=== PATIENT | female | born 1935 | race Hispanic/Latino ===

== ENCOUNTER 2021-08-18 12:23 | Emergency (ER) | payer OTHER, MEDICARE ==
[~2021-08-18] VITALS: Ht 152.4 cm; Wt 56.7 kg
[~2021-08-18 12:23] MED LIST: ERGO500014 PO; EZET10TA48 PO; LEVO500T2 PO; LISI20TA24 PO; METO100T14 PO; METR500T PO
[2021-08-18 13:04] LABS: BASOPHILS % (AUTO) 0.2 % (0.0-5.0); EOSINOPHILS % (AUTO) 0.6 % (0.0-8.0); HEMATOCRIT 38.9 % (36-48); LYMPHOCYTES % (AUTO) 19.4 % (21.0-51.0); MEAN CORPUSCULAR HEMOGLOBIN 29.8 pg (27.0-33.0); MEAN CORPUSCULAR HGB CONC 33.4 g/dL (32.0-36.0); MEAN CORPUSCULAR VOLUME 89.2 fL (79-99); MONOCYTES % (AUTO) 7.7 % (3.0-13.0); NEUTROPHILS % (AUTO) 71.6 % (40.0-77.0); PLATELET COUNT (AUTO) 222 K/uL (130-400); RED BLOOD CELL COUNT(AUTO) 4.36 MIL/uL (4.00-5.50); RED CELL DISTRIBUTION WIDTH 12.7 % (11.0-15.5); WHITE BLOOD COUNT (AUTO) 10.4 K/uL (4.8-10.8)
[2021-08-18 13:06] LABS: CREATININE 0.8 mg/dL (0.5-1.5); POTASSIUM 3.7 mmol/L (3.5-5.1)
[2021-08-18 13:11] LABS: ALBUMIN 3.7 g/dL (3.5-5.0); BILIRUBIN,TOTAL 0.6 mg/dL (0.2-1.0); TOTAL PROTEIN, SERUM 7.9 g/dL (6.0-8.3)
[2021-08-18 14:48] LABS: APPEARANCE,URINE Clear (CLEAR); BILIRUBIN,URINE Negative (NEGATIVE); COLOR,URINE Yellow (YELLOW); GLUCOSE, URINE (UA) Negative (NEGATIVE); KETONES,URINE Negative (NEGATIVE); LEUKOCYTE ESTERASE ,URINE Large (NEGATIVE); NITRATE,URINE Negative (NEGATIVE); OCCULT BLOOD,URINE Trace (NEGATIVE); PH,URINE 5.5 (5.0-8.0); PROTEIN,URINE Trace mg/dL (NEGATIVE); UROBILINOGEN,URINE 0.2 mg/dL (0.2-1.0)
[2021-08-18 14:59] LABS: RBC,URINE 0-1 /HPF (0-1)
[2021-08-18 15:00] LABS: BACTERIA,URINE Few /HPF (None Seen); MUCUS,URINE Few LPF (None Seen); SQUAMOUS EPITHELIAL CELL,UR 0-2 /HPF (0-2)
[2021-08-18] MEDS ORDERED: CEFTRIAXONE 1G VIAL IM ONE (15:00)
[2021-08-18] MEDS ORDERED: CEFTRIAXONE 1G VIAL ONE (15:05)
[2021-08-18] MEDS ORDERED: LIDOCAINE HCL-MPF 1% 2ML VIAL ONE (15:05)
[2021-08-18 15:20] VITALS: BP 170/84
== END 2021-08-18 15:25 | disposition home or self-care (01) ==
LOC: EDH 12:23
DX: N39.0 Urinary tract infection, site not specified (principal); I10 Essential (primary) hypertension; E78.00 Pure hypercholesterolemia, unspecified; Z90.89 Acquired absence of other organs; Z90.49 Acquired absence of other specified parts of digestive tract; Z88.1 Allergy status to other antibiotic agents; Z88.8 Allergy status to other drugs, medicaments and biological substances; Z79.899 Other long term (current) drug therapy
CPT/HCPCS: 36415; 80053; 81001; 85025; 87088; 96372; 99283; J0696; J3490

== ENCOUNTER → 2024-01-22 | Outpatient (CLI) | payer OTHER, MEDICARE ==
[~2024-01-22] MED LIST changes: +AMLO-258 PO; -ERGO500014 PO; -EZET10TA48 PO; -LEVO500T2 PO; -LISI20TA24 PO; +LOSA100T59 PO; +METO-409 PO; -METO100T14 PO; -METR500T PO
== END | disposition home or self-care (01) ==
LOC: SHCH 07:30
PROVIDERS: ATTEND Internal Medicine Cardiovascular Disease
DX: R94.39 Abnormal result of other cardiovascular function study (principal)
CPT/HCPCS: 93978

== ENCOUNTER 2024-08-12 11:30 | Emergency (ER) | payer OTHER, MEDICARE ==
[~2024-08-12] VITALS: Ht 152.4 cm; Wt 62.6 kg
[2024-08-12 11:54] LABS: BASOPHILS # (AUTO) 0.02 K/uL (0.00-0.20); BASOPHILS % (AUTO) 0.3 % (0.0-5.0); EOSINOPHILS # (AUTO) 0.06 K/uL (0.00-0.70); EOSINOPHILS % (AUTO) 0.9 % (0.0-8.0); HEMATOCRIT 40.4 % (36-48); IMMATURE GRANULOCYTE ABSOLUTE 0.02 K/uL (0-1); LYMPHOCYTES # (AUTO) 1.9 K/uL (1.0-4.8); LYMPHOCYTES % (AUTO) 29.6 % (21.0-51.0); MEAN CORPUSCULAR HEMOGLOBIN 30.5 pg (27.0-33.0); MEAN CORPUSCULAR HGB CONC 33.4 g/dL (32.0-36.0); MEAN CORPUSCULAR VOLUME 91.4 fL (79-99); MONOCYTES # (AUTO) 0.5 K/uL (0.1-1.0); MONOCYTES % (AUTO) 8.1 % (3.0-13.0); NEUTROPHILS # (AUTO) 3.9 K/uL (1.8-7.7); NEUTROPHILS % (AUTO) 60.8 % (40.0-77.0); PLATELET COUNT (AUTO) 228 K/uL (130-400); RED BLOOD CELL COUNT(AUTO) 4.42 MIL/uL (4.00-5.50); RED CELL DISTRIBUTION WIDTH 13.2 % (11.0-15.5); WHITE BLOOD COUNT (AUTO) 6.4 K/uL (4.8-10.8)
[2024-08-12] MEDS: 0.9%NACL 1000ML 1,000 ML IV STA (11:54)
[2024-08-12] MEDS: morPHINE 2 MG SYG IVP STA (11:54)
[2024-08-12] MEDS: ondanSETRON 4MG INJ IVP STA (11:55)
[2024-08-12 12:01] LABS: CREATININE 0.8 mg/dL (0.5-1.0); POTASSIUM 3.6 mmol/L (3.5-5.1)
[2024-08-12] MEDS ORDERED: IOHEXOL-350 75 ML VIAL IV ONE (12:31)
--- NOTE | 2024-08-12 12:49 | ERN ---
ED Note History of Present Illness Stated Complaint: LEFT FLANK PAIN Chief Complaint: Flank Pain Time Seen by MD: 11:38 Time Seen by Midlevel: 11:44 Dictation: 88-year-old female coming in with complaints of left flank pain and left lower quadrant pain. Patient states she has a history of diverticulitis. Patient states her pain started yesterday. Denies having any nausea or vomiting or diarrhea at this time. Denies any urinary symptoms. Allergies: Coded Allergies: ciprofloxacin (Unverified Allergy, Mild, 02/07/14) hydralazine (Unverified Allergy, Mild, RASH HANDS, FLUSHING , 04/02/17) Home Meds Active Scripts Amlodipine Besylate (Amlodipine Besylate) 10 Mg Tablet, 10 MG PO DAILY for 30 Days, #30 TAB 0 Refills Prov:CEDRIC IVERSON WASHATERIA ATTENDANT 09/11/23 Reported Medications Losartan Potassium (Losartan Potassium) 100 Mg Tablet, 100 MG PO DAILY, TAB 04/10/23 Metoprolol Succinate (Metoprolol Succinate) 100 Mg Tab.er.24h, 100 MG PO DAILY, TAB 04/10/23 Past Medical History Past Medical History: Diverticulitis, Hypertension Surgical History: Appendectomy, Cholecystectomy Review of System Dictation Constitutional: Negative for fever,chills, and weight loss Eyes: Negative for injury, pain,redness, and discharge ENT: Negative for injury,pain or swelling Cardiovascular: Negative for chest pain, palpitations, and edema Respiratory: Negative for shortness of breath, cough, and wheezing, Abdomen/GI: Positive for left lower quadrant pain, no nausea, no vomiting, no diarrhea, and constipation Back: Negative for injury and pain : Negative for injury, bleeding and discharge MS/Extremity: Negative for injury and deformity Skin: Negative for rash, and discoloration Neuro: Negative for headache, weakness, numbness, tingling, and seizure Psych: Negative for suicide ideation, homicidal ideation, and hallucinations Review of Systems: was completed Initial Vital Sign VS Vital Signs Date Time Temp Pulse Resp B/P (MAP) Pulse Ox O2 Delivery O2 Flow Rate FiO2 08/12/24 11:50 98.6 77 13 /83 94 Room Air* 0 21 Physical Exam Dictation General: awake, alert, NAD Head/Face: Normocephalic, atraumatic Eyes: PERRL, EOMI, vision at baseline ENT: oral cavity clear, TMs clear, no signs of infection Neck: Trachea midline, supple, no nuchal rigidity Cardiovascular: RRR, normal S1/S2, No MRGs, no JVD Respiratory: CTAB, no respiratory distress, No rales or wheezes Abdomen: Soft, non-tender, non-distended, normal bowel sounds, no guarding or rebound. Skin: Warm, dry, normal turgor, no rash MS/Extremity: Pulses equal, no cyanosis, neurovascular intact, FROM Neuro: COAx4, GCS 15, strength 5/5, CN 2-12 intact, normal cerebellar exam, normal gait, Psych: Normal behavior, mood, and affect normal Results (Laboratory/Radiology) Laboratory/Radiology Laboratory Tests Test 08/12/24 11:45 08/12/24 13:22 White Blood Count 6.4 K/uL (4.8-10.8) Red Blood Count 4.42 MIL/uL (4.00-5.50) Hemoglobin 13.5 g/dL (12.0-16.0) Hematocrit 40.4 % (36-48) Mean Corpuscular Volume 91.4 fL (79-99) Mean Corpuscular Hemoglobin 30.5 pg (27.0-33.0) Mean Corpuscular Hemoglobin Concent 33.4 g/dL (32.0-36.0) Red Cell Distribution Width 13.2 % (11.0-15.5) Platelet Count 228 K/uL (130-400) Mean Platelet Volume 10.0 fL (7.5-10.5) Immature Granulocyte % (Auto) 0.3 % (0-1) Neutrophils (%) (Auto) 60.8 % (40.0-77.0) Lymphocytes (%) (Auto) 29.6 % (21.0-51.0) Monocytes (%) (Auto) 8.1 % (3.0-13.0) Eosinophils (%) (Auto) 0.9 % (0.0-8.0) Basophils (%) (Auto) 0.3 % (0.0-5.0) Neutrophils # (Auto) 3.9 K/uL (1.8-7.7) Lymphocytes # (Auto) 1.9 K/uL (1.0-4.8) Monocytes # (Auto) 0.5 K/uL (0.1-1.0) Eosinophils # (Auto) 0.06 K/uL (0.00-0.70) Basophils # (Auto) 0.02 K/uL (0.00-0.20) Absolute Immature Granulocyte (auto 0.02 K/uL (0-1) Nucleated Red Blood Cells 0.0 % (0.0-0.19) Sodium Level 139 mmol/L (136-145) Potassium Level 3.6 mmol/L (3.5-5.1) Chloride Level 102 mmol/L (101-111) Carbon Dioxide Level 26 mmol/L (21-32) Blood Urea Nitrogen 14 mg/dL (7-18) Creatinine 0.8 mg/dL (0.5-1.0) Glomerular Filtration Rate Calc 70 mL/min (>90) Random Glucose 145 mg/dL (70-105) H Total Calcium 9.3 mg/dL (8.5-10.1) Lipase 63 U/L (16-77) Urine Color COLORLESS (YELLOW) Urine Appearance CLEAR (CLEAR) Urine pH 6.5 (5.0-8.0) Urine Specific [place] 1.015 (1.001-1.031) Urine Protein 10 mg/dL (NEGATIVE) H Urine Glucose (UA) NEGATIVE mg/dL (NEGATIVE) Urine Ketones NEGATIVE mg/dL (NEGATIVE) Urine Occult Blood NEGATIVE (NEGATIVE) Urine Nitrate 2+ (NEGATIVE) H Urine Bilirubin NEGATIVE mg/dL (NEGATIVE) Urine Urobilinogen 0.2 mg/dL (0.2-1.0) Urine Leukocyte Esterase NEGATIVE [place]/uL Urine RBC 0-1 /HPF (0-1) Urine WBC 0-1 /HPF (0-1) Urine Squamous Epithelial Cells RARE /HPF (0-2) Urine Bacteria FEW /HPF (None Seen) Labs Reviewed?: Yes EKG Comment: EKGs done at 11:49 a.m., sinus rhythm at a rate of 87. Anteroseptal infarct, old. No STEMI interpreted by ER CT Scan Comment: [facility] [address] [place] [address] IMAGING REPORT Signed PATIENT: ADRIAN TREVINO MR#: [id number] : 1935 SEX: F AGE: 88 LOCATION: [facility] ORDER [id number] STATUS: REG ER REPORT#: [id number] SERVICE 1145 REASON: lflank pain, llq pain, hx of diverticulitis ORDERING PHYSICIAN: RAINER GAFFNEY NP PROCEDURE: ABD PEL W - CT ABDOMEN/PELVIS W/CONTRAST CT ABDOMEN/PELVIS W/CONTRAST HISTORY: Flank pain COMPARISON: 04/09/2023 TECHNIQUE: Multiple sequential axial images of the abdomen and pelvis were obtained from the dome of the diaphragm through symphysis pubis. Patient was given 75 cc of Omnipaque through intravenous route. Oral contrast was not given. FINDINGS: No pleural effusion is seen bilaterally. There is no evidence of parenchymal disease or pulmonary nodule of the visualized lower lungs. Degenerative changes of the thoracolumbar spine are present. The heart is not enlarged. Superior endplate compression fracture is seen involving T11 with 20% loss of height. The liver measures 16.2 cm. There is anterior splenic cyst measuring 2 cm. This may also be related to chronic infarct. Extensive bilateral renal cysts are seen with the largest on the right measuring 8.2 cm and largest on the left measuring 4.5 cm. These were present on previous study. There is diverticulosis. Mild small bowel dilatation is seen with fluid-filled may be related to enteritis. Adrenal glands and pancreas are unremarkable. There is no evidence of hydronephrosis bilaterally. No evidence of renal stone is seen. Fecal material is seen in the colon. There are normal size retroperitoneal and mesenteric lymph nodes. No ascites is seen. Atherosclerotic changes are present. Uterus is enlarged may be related to fibroid uterus. Pelvic sidewalls are symmetric bilaterally. Bladder is well distended without wall thickening. Tiny amount of air collection is seen in the bladder. IMPRESSION: 1. Extensive bilateral renal cysts are seen with the largest on the right measuring 8.2 cm and largest on the left measuring 4.5 cm. These were present on previous study. There is diverticulosis. Mild small bowel dilatation is seen with fluid-filled may be related to enteritis. Possible anterior splenic cyst. No ascites. CT was performed with one or more following dose reduction techniques: automated exposure control, adjustment of the mA and kv according to patient's size, or use of a iterative reconstruction technique. DICTATED BY: STEVEN FERMIN MD DATE: 08/12/24 1258 ED Course ED Course Orders Procedure Category Date Status Time Cbc With Differential LAB 08/12/24 Complete 11:45 Basic Metabolic Panel LAB 08/12/24 Complete 11:45 Lipase LAB 08/12/24 Complete 11:45 Urinalysis Profile LAB 08/12/24 Complete 11:45 12 Lead Ekg Tracing- EKG 08/12/24 Complete Technical 11:45 Chest 1vw RAD 08/12/24 Taken 11:45 Ct Abdomen/Pelvis CT 08/12/24 Resulted W/Contrast 11:45 0.9%Nacl 1000ml (Ns PHA 08/12/24 Complete 1000ml) 11:45 Ondansetron 4mg Inj PHA 08/12/24 Complete (Zofran 4mg Inj) 11:45 Morphine 2mg Syg PHA 08/12/24 Complete (Morphine 2mg Syg) 11:45 Iohexol (Omnipaque) PHA 08/12/24 Complete 12:31 Labetalol 20mg Syg PHA 08/12/24 Complete (Trandate 20mg Syg) 13:23 Culture Urine BATOOL 08/12/24 In Process 13:49 Current Medications Medications (Trade) Dose Ordered Sig/Risa Route PRN Reason Start Time Stop Time Status Last Admin Dose Admin Iohexol (Omnipaque) 75 ml STK-MED ONCE IV 08/12/24 12:31 08/12/24 12:31 DC Labetalol HCl (TRANdate 20MG SYG) 10 mg ONCE STAT IV 08/12/24 13:23 08/12/24 13:26 DC 08/12/24 13:36 Morphine Sulfate (morPHINE 2MG SYG) 2 mg ONCE STAT IVP 08/12/24 11:45 08/12/24 11:50 DC 08/12/24 11:54 Ondansetron HCl (zoFRAN 4MG INJ) 4 mg ONCE STAT IVP 08/12/24 11:45 08/12/24 11:50 DC 08/12/24 11:55 Sodium Chloride 1,000 ml @ 1,000 mls/hr Q1H STAT IV 08/12/24 11:45 08/12/24 12:44 DC 08/12/24 11:54 Vital Signs Date Time Temp Pulse Resp B/P (MAP) Pulse Ox O2 Delivery O2 Flow Rate FiO2 08/12/24 13:24 94 16 209/89 98 Room Air* 0 21 08/12/24 11:55 95 17 233/98 98 Room Air 08/12/24 11:50 98.6 77 13 / 94 Room Air* 0 21 Medical Decision Making MDM MDM: 88-year-old female coming in with complaints of left flank pain and left lower quadrant pain. Patient states she has a history of diverticulitis. Patient states her pain started yesterday. Denies having any nausea or vomiting or diarrhea at this time. Denies any urinary symptoms. She denies having any chest pain or chest discomfort. Lab work unremarkable. CT scan of the abdomen shows enteritis, and diverticulosis. Discussed findings with daughter. Discussed use follow up with PCP in 1-2 days or to return to the hospital as needed. Both verbalized understanding, answered all questions. Differential diagnosis: Kidney stone, urinary tract infection, diverticulitis, gastroenteritis Rationale: Tests considered and ordered secondary to shared decision making include: Previous outside records reviewed: Old ER visits. Risk of complication and/or morbidity or mortality of patient management: None Medications-Per medication reconciliation Need for hospitalization: Patient does not meet criteria for hospitalization. Need for emergency major/minor surgery: No There are no social concerns with this patient. Prescription drug management Prescriptions will include symptomatic care Patient's prior external medical records from other ER visits were reviewed by me as indicated. Prior testing and results from previous visits were reviewed. Prior tests were taken into account with medical decision making and resource utilization, independent historian/historians were used to obtain complete medical history. I independently interpreted the test that were performed, results were reviewed by me and considered findings on radiology if ordered. Medical management and examination interpretation discussions were had by me with other qualified healthcare professionals as indicated for the patient's care. DX & DISP Disposition: Discharge Departure Impression: Primary Impression: Enteritis Additional Impressions: Diverticulosis, Bilateral renal cysts Condition: Stable Additional Instructions: Spoke with the PCP regarding your NSAIDs and findings of bilateral renal cysts. Take your home medications as prescribed. Return to the hospital if any worsening symptoms. Referrals: SANGITA PEREZ DO (PCP) Time of Disposition: 14:14 I have reviewed the case, and I agree with, Diagnosis and Plan RAINER GAFFNEY NP Aug 12, 2024 12:49
--- NOTE | 2024-08-12 13:03 | HMCIMG ---
CT ABDOMEN/PELVIS W/CONTRAST HISTORY: Flank pain COMPARISON: 04/09/2023 TECHNIQUE: Multiple sequential axial images of the abdomen and pelvis were obtained from the dome of the diaphragm through symphysis pubis. Patient was given 75 cc of Omnipaque through intravenous route. Oral contrast was not given. FINDINGS: No pleural effusion is seen bilaterally. There is no evidence of parenchymal disease or pulmonary nodule of the visualized lower lungs. Degenerative changes of the thoracolumbar spine are present. The heart is not enlarged. Superior endplate compression fracture is seen involving T11 with 20% loss of height. The liver measures 16.2 cm. There is anterior splenic cyst measuring 2 cm. This may also be related to chronic infarct. Extensive bilateral renal cysts are seen with the largest on the right measuring 8.2 cm and largest on the left measuring 4.5 cm. These were present on previous study. There is diverticulosis. Mild small bowel dilatation is seen with fluid-filled may be related to enteritis. Adrenal glands and pancreas are unremarkable. There is no evidence of hydronephrosis bilaterally. No evidence of renal stone is seen. Fecal material is seen in the colon. There are normal size retroperitoneal and mesenteric lymph nodes. No ascites is seen. Atherosclerotic changes are present. Uterus is enlarged may be related to fibroid uterus. Pelvic sidewalls are symmetric bilaterally. Bladder is well distended without wall thickening. Tiny amount of air collection is seen in the bladder. IMPRESSION: 1. Extensive bilateral renal cysts are seen with the largest on the right measuring 8.2 cm and largest on the left measuring 4.5 cm. These were present on previous study. There is diverticulosis. Mild small bowel dilatation is seen with fluid-filled may be related to enteritis. Possible anterior splenic cyst. No ascites. CT was performed with one or more following dose reduction techniques: automated exposure control, adjustment of the mA and kv according to patient's size, or use of a iterative reconstruction technique.
[2024-08-12] MEDS: LAbetaLOL 20MG SYG IV STA (13:36)
[2024-08-12 13:37] LABS: APPEARANCE,URINE CLEAR (CLEAR); BILIRUBIN,URINE NEGATIVE (NEGATIVE); COLOR,URINE COLORLESS (YELLOW); GLUCOSE, URINE (UA) NEGATIVE (NEGATIVE); KETONES,URINE NEGATIVE (NEGATIVE); LEUKOCYTE ESTERASE ,URINE NEGATIVE Leu/uL (NEGATIVE); NITRATE,URINE 2+ (NEGATIVE); OCCULT BLOOD,URINE NEGATIVE (NEGATIVE); PH,URINE 6.5 (5.0-8.0); PROTEIN,URINE 10 mg/dL (NEGATIVE); UROBILINOGEN,URINE 0.2 mg/dL (0.2-1.0)
[2024-08-12 13:40] LABS: ADD UA MICROSCOPIC YES
--- NOTE | 2024-08-12 13:43 | EKG ---
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
[2024-08-12 13:56] LABS: BACTERIA,URINE FEW /HPF (None Seen); RBC,URINE 0-1 /HPF (0-1); SQUAMOUS EPITHELIAL CELL,UR RARE /HPF (0-2); WBC,URINE 0-1 /HPF (0-1)
--- NOTE | 2024-08-12 14:31 | HMCIMG ---
CHEST 1VW HISTORY: Shortness of breath COMPARISON: None FINDINGS: A frontal projection of the chest was obtained. No acute pulmonary infiltrates is seen. The heart is borderline enlarged. Degenerative changes are seen. Prominent interstitial markings are seen. No evidence of aortic calcification is seen. IMPRESSION: 1. No acute pulmonary infiltrate is seen. Prominent interstitial markings.
[2024-08-12 15:00] VITALS: BP 166/77; PULSE 80; RESP 16; TEMP 98.4; O2SAT 100
== END 2024-08-12 15:05 | disposition home or self-care (01) ==
LOC: EDH 11:30
DX: K52.9 Noninfective gastroenteritis and colitis, unspecified (principal); K57.10 Diverticulosis of small intestine without perforation or abscess without bleeding; N28.1 Cyst of kidney, acquired; I10 Essential (primary) hypertension; Z79.899 Other long term (current) drug therapy; Z88.1 Allergy status to other antibiotic agents; Z90.49 Acquired absence of other specified parts of digestive tract
CPT/HCPCS: 99285; 74177; 96374; 96361; 96375; 71045; 80048; 83690; 85025; 87086 ×2; 87186; 81001; 36415; 93005; J2270; J2405; Q9967

== ENCOUNTER 2024-10-01 16:25 | Inpatient (IN) | payer OTHER, MEDICAID ==
[~2024-10-01] VITALS: Ht 152.4 cm; Wt 59.4 kg
[2024-10-01] MEDS: dilTIAZem 25MG INJ IVP ONE ×2 (16:56→16:59)
[2024-10-01] MEDS ORDERED: metoPROLOL tartRATE 1 MG/ML 5ML VIAL IV ONE (17:00)
[2024-10-01] MEDS ORDERED: dilTIAZem 25MG INJ IVP ONE ×3 (17:00)
[2024-10-01 17:09] LABS: BASOPHILS # (AUTO) 0.03 K/uL (0.00-0.20); BASOPHILS % (AUTO) 0.4 % (0.0-5.0); EOSINOPHILS % (AUTO) 1.3 % (0.0-8.0); HEMATOCRIT 44.1 % (36-48); IMMATURE GRANULOCYTE ABSOLUTE 0.03 K/uL (0-1); LYMPHOCYTES # (AUTO) 2.7 K/uL (1.0-4.8); LYMPHOCYTES % (AUTO) 36.1 % (21.0-51.0); MEAN CORPUSCULAR HEMOGLOBIN 30.5 pg (27.0-33.0); MEAN CORPUSCULAR VOLUME 89.8 fL (79-99); MONOCYTES # (AUTO) 0.7 K/uL (0.1-1.0); MONOCYTES % (AUTO) 9.8 % (3.0-13.0); NEUTROPHILS # (AUTO) 3.9 K/uL (1.8-7.7); PLATELET COUNT (AUTO) 220 K/uL (130-400); RED BLOOD CELL COUNT(AUTO) 4.91 MIL/uL (4.00-5.50); RED CELL DISTRIBUTION WIDTH 12.9 % (11.0-15.5); WHITE BLOOD COUNT (AUTO) 7.5 K/uL (4.8-10.8)
[2024-10-01 17:13] LABS: CREATININE 0.8 mg/dL (0.5-1.0); POTASSIUM 3.6 mmol/L (3.5-5.1)
[2024-10-01 17:18] LABS: INR 1.02 (0.85-1.15); PROTHROMBIN TIME 10.8 SEC (9.6-11.6)
[2024-10-01 17:19] LABS: PARTIAL THROMBOPLASTIN TIME 26.1 SEC (26.3-35.5)
[2024-10-01] MEDS ORDERED: WATER IV ONE (17:30)
[2024-10-01] MEDS ORDERED: DEXTROSE 5% IV ONE (17:30)
[2024-10-01] MEDS ORDERED: AMIODARONE IV ONE (17:30)
[2024-10-01] MEDS ORDERED: AMIODARONE 540 MG/D5W 300ML (0.5MG/MIN) IV SCH (17:30)
--- NOTE | 2024-10-01 17:35 | NUR ---
AFTER DISCUSSING HAVING BOTH DILTIAZEM DRIP ALONG W/AMIODARONE DRIP RUNNING AT THE SAME TIME FOR PT RATE/RHYTHM CONTROL, DR QUINONES STATED HE DID WANT THEM BOTH RUNNING TOGETHER AT SAME TIME AND GAVE REASONS TO WHY
[2024-10-01] MEDS: AMIOdarone 150MG/100ML BAG 100 ML IV ONE (17:43)
--- NOTE | 2024-10-01 17:50 | ERN ---
General Chief Complaint: Weakness Stated Complaint: WEAKNESS,SHAKY Time Seen by MD: 16:33 History of Present Illness Initial Comments 88-year-old female brought in by family because she was feeling weak with palpitations and a fast heart rate. Patient states she has had this in the past. She does have a history of atrial fibrillation and she is on oral diltiazem. Please see the code note for details. Summary patient is now rate controlled on a diltiazem drip with amiodarone running for conversion to normal sinus rhythm. Allergies: Coded Allergies: ciprofloxacin (Unverified Allergy, Mild, 02/07/14) hydralazine (Unverified Allergy, Mild, RASH HANDS, FLUSHING , 04/02/17) Home Meds Reported Medications Diltiazem HCl (Diltiazem HCl) 60 Mg Tablet, 1 TAB PO DAILY for 30 Days, #30 TAB 0 Refills 10/02/24 Losartan Potassium (Losartan Potassium) 100 Mg Tablet, 100 MG PO DAILY, TAB 04/10/23 Metoprolol Succinate (Metoprolol Succinate) 100 Mg Tab.er.24h, 100 MG PO DAILY, TAB 04/10/23 Discontinued Scripts Amlodipine Besylate (Amlodipine Besylate) 10 Mg Tablet, 10 MG PO DAILY for 30 Days, #30 TAB 0 Refills Prov:CEDRIC IVERSON NP 09/11/23 Past Medical History Past Medical History: Diverticulitis, Hypertension Past Surgical History: Appendectomy, Cholecystectomy Constitutional: (-) chills, (-) diaphoresis, (-) fever, (-) malaise, (-) weakne ss, (-) other documentation EENTM: (-) eye pain, (-) blurred vision, (-) tearing, (-) double vision, (-) e ar pain, (-) ear discharge, (-) nose pain, (-) nose congestion, (-) throat pain, (-) Throat swelling, (-) mouth pain, (-) tooth pain, (-) mouth swelling, (-) other documentation Respiratory: (-) cough, (-) orthopnea, (-) short of breath, (-) stridor, (-) wheezing, (-) other documentation Cardiovascular: (-) chest pain, (-) edema, (-) palpitations, (-) syncope, (-) dyspnea on exertion, (-) other documentation Gastrointestinal/Abdominal: (-) nausea, (-) vomiting, (-) diarrhea, (-) abdominal pain, (-) abdominal distention, (-) constipation, (-) rectal bleeding, (-) dark stool/melena, (-) other documentation Genitourinary: (-) vaginal discharge, (-) vaginal bleeding, (-) dysuria, (-) frequency, (-) hematuria, (-) pain, (-) other documentation Skin: (-) laceration, (-) contusion, (-) abrasion, (-) abscess, (-) rash, (-) change in color, (-) change in hair, (-) change in nails, (-) diaphoresis, (-) dryness, (-) other documentation Neuro: (-) altered mental status, (-) headache, (-) syncope, (-) paralysis, (-) numbness, (-) seizure, (-) pre-existing deficit, (-) tremors, (-) weakness, (-) dizziness, (-) slurred speech, (-) vertigo, (-) other documentation Physical Exam Orientation: (+) oriented x 3 Eye: bilateral eye normal inspection, bilateral eye PERRL, bilateral eye EOMI Ear, Nose, Throat: (+) hearing grossly normal, (+) normal ENT inspection Neck: (+) normal inspection, (+) supple Respiratory: (+) chest non-tender, (+) lungs clear Heart: (+) regular, (+) no gallop Vascular: (+) no edema Gastrointestinal: (+) soft, (+) non-tender, (+) no organomegaly Results Laboratory and Microbiology Lab and Micro Result Laboratory Tests Test 10/01/24 16:47 10/01/24 18:00 White Blood Count 7.5 K/uL (4.8-10.8) Red Blood Count 4.91 MIL/uL (4.00-5.50) Hemoglobin 15.0 g/dL (12.0-16.0) Hematocrit 44.1 % (36-48) Mean Corpuscular Volume 89.8 fL (79-99) Mean Corpuscular Hemoglobin 30.5 pg (27.0-33.0) Mean Corpuscular Hemoglobin Concent 34.0 g/dL (32.0-36.0) Red Cell Distribution Width 12.9 % (11.0-15.5) Platelet Count 220 K/uL (130-400) Mean Platelet Volume 10.0 fL (7.5-10.5) Immature Granulocyte % (Auto) 0.4 % (0-1) Neutrophils (%) (Auto) 52.0 % (40.0-77.0) Lymphocytes (%) (Auto) 36.1 % (21.0-51.0) Monocytes (%) (Auto) 9.8 % (3.0-13.0) Eosinophils (%) (Auto) 1.3 % (0.0-8.0) Basophils (%) (Auto) 0.4 % (0.0-5.0) Neutrophils # (Auto) 3.9 K/uL (1.8-7.7) Lymphocytes # (Auto) 2.7 K/uL (1.0-4.8) Monocytes # (Auto) 0.7 K/uL (0.1-1.0) Eosinophils # (Auto) 0.10 K/uL (0.00-0.70) Basophils # (Auto) 0.03 K/uL (0.00-0.20) Absolute Immature Granulocyte (auto 0.03 K/uL (0-1) Nucleated Red Blood Cells 0.0 % (0.0-0.19) Prothrombin Time 10.8 SEC (9.6-11.6) Prothromb Time International Ratio 1.02 (0.85-1.15) Activated Partial Thromboplast Time 26.1 SEC (26.3-35.5) L Sodium Level 141 mmol/L (136-145) Potassium Level 3.6 mmol/L (3.5-5.1) Chloride Level 100 mmol/L (101-111) L Carbon Dioxide Level 27 mmol/L (21-32) Blood Urea Nitrogen 16 mg/dL (7-18) Creatinine 0.8 mg/dL (0.5-1.0) Glomerular Filtration Rate Calc 70 mL/min (>90) Random Glucose 155 mg/dL (70-105) H Total Calcium 10.0 mg/dL (8.5-10.1) Phosphorus Level 3.4 mg/dL (2.5-4.9) Magnesium Level 2.10 mg/dL (1.80-2.40) Troponin I High Sensitivity 27 ng/L (4-50) 60 ng/L (4-50) *H MDM Patient with a history of atrial fibrillation comes in with an acute exacerbation tachycardic up to 170. Her rate is now controlled with diltiazem. She has not converted to normal sinus yet. The owners is on us to figure out why she had a quick exacerbation of her baseline atrial fibrillation. So I ordered a cardiac labs CBC chemistry panel UA I will give her a little fluid. And a chest x-ray. ED Course Orders Procedure Category Date Status Time Diltiazem 25mg Inj PHA 10/01/24 Complete (Cardizem 25mg Inj) 17:00 Diltiazem 25mg Inj PHA 10/01/24 Complete (Cardizem 25mg Inj) 17:00 Diltiazem 25mg Inj PHA 10/01/24 Complete (Cardizem 25mg Inj) 17:00 Troponin I High LAB 10/01/24 Complete Sensitivity 16:52 Pt And Ptt LAB 10/01/24 Complete 16:52 Basic Metabolic Panel LAB 10/01/24 Complete 16:52 Cbc With Differential LAB 10/01/24 Complete 16:52 Chest 1vw RAD 10/01/24 Resulted 16:52 12 Lead Ekg Tracing- EKG 10/01/24 Complete Technical 16:52 Diltiazem 25mg Inj PHA 10/01/24 Complete (Cardizem 25mg Inj) 17:00 Cardiac Monitoring CPOE 10/01/24 Transmitted 16:52 Iv Insertion CPOE 10/01/24 Transmitted 16:52 Diltiazem 25mg Inj PHA 10/01/24 Complete (Cardizem 25mg Inj) 16:51 Diltiazem 125 Mg/25 PHA 10/01/24 Complete Ml Inj (Diltiazem 12 17:30 Amiodarone 150mg Vial PHA 10/01/24 Complete (Cordarone 150mg V 17:30 Amiodarone 900mg Vial PHA 10/01/24 Complete (Cordarone 900mg V 17:30 Amiodarone PHA 10/01/24 Complete 150mg/100ml Bag 17:30 Amiodarone PHA 10/01/24 Complete 360mg/200ml Bag 17:30 Amiodarone 900mg Vial PHA 5/30/25 In Process (Cordarone 900mg V 17:30 12 Lead Ekg Tracing- EKG 10/01/24 Complete Technical 17:50 Troponin I High LAB 10/01/24 Complete Sensitivity 17:50 Magnesium LAB 10/01/24 Complete 17:50 Phosphorus LAB 10/01/24 Complete 17:50 Cardiology Consult CONPHYSVC 10/01/24 Transmitted 18:08 *Nursing CPOE 10/01/24 Transmitted Communication: 18:31 Current Medications Medications (Trade) Dose Ordered Sig/Risa Route PRN Reason Start Time Stop Time Status Last Admin Dose Admin Amiodarone HCl 150 mg/Dextrose 53 ml @ 0 mls/hr ONCE ONCE IV 10/01/24 17:30 10/01/24 17:08 DC Amiodarone HCl 540 mg/Dextrose 300 ml @ 16.667 mls/ hr PROTOCOL IV 10/01/24 17:30 10/31/24 17:29 Amiodarone HCl 900 mg/Dextrose 518 ml @ 0 mls/hr PROTOCOL IV 10/01/24 17:30 10/01/24 17:08 DC Amiodarone HCL/ Dextrose 100 ml @ 0 mls/hr ONCE ONCE IV 10/01/24 17:30 10/01/24 17:31 DC 10/01/24 17:43 Amiodarone HCL/ Dextrose 200 ml @ 0 mls/hr ONCE ONCE IV 10/01/24 17:30 10/01/24 17:31 DC 10/01/24 17:57 Diltiazem HCl (CARDIzem 25MG INJ) 10 mg ONCE ONCE IVP 10/01/24 17:00 10/01/24 16:56 DC Diltiazem HCl (CARDIzem 25MG INJ) 20 mg ONCE ONCE IVP 10/01/24 17:00 10/01/24 16:53 DC Diltiazem HCl (CARDIzem 25MG INJ) 20 mg ONCE ONCE IVP 10/01/24 17:00 10/01/24 16:56 DC Diltiazem HCl (CARDIzem 25MG INJ) 20 mg ONCE ONCE IVP 10/01/24 17:00 10/01/24 17:01 DC 10/01/24 16:56 Diltiazem HCl (CARDIzem 25MG INJ) 25 mg STK-MED ONCE IVP 10/01/24 16:51 10/01/24 16:56 DC 10/01/24 16:59 Diltiazem HCl 125 mg/Sodium Chloride 125 ml @ 0 mls/hr PROTOCOL IV 10/01/24 17:30 10/01/24 18:33 DC 10/01/24 18:18 Metoprolol Tartrate (loprESSOR) 5 mg ONCE ONCE IV 10/01/24 17:00 10/01/24 17:03 DC Vital Signs Date Time Temp Pulse Resp B/P (MAP) Pulse Ox O2 Delivery O2 Flow Rate FiO2 10/01/24 18:41 99.0 88 19 162/63 96 Room Air* 0 10/01/24 18:35 99.0 95 16 172/82 96 Room Air* 0 10/01/24 18:19 98.4 95 16 167/79 96 Room Air* 0 10/01/24 18:18 103 167/79 10/01/24 18:02 98.4 107 20 154/72 94 Room Air* 0 10/01/24 17:45 98.4 102 20 167/70 95 Room Air* 0 10/01/24 17:33 98.4 95 13 172/66 96 Room Air* 0 10/01/24 17:27 98.4 90 15 168/63 98 Room Air* 0 10/01/24 17:13 99.5 107 17 164/77 95 Room Air* 0 10/01/24 16:59 99.5 109 18 156/87 96 Room Air* 0 10/01/24 16:59 150/80 10/01/24 16:56 150/80 10/01/24 16:46 99.5 195 20 188/108 95 Nasal Cannula* 2 10/01/24 16:28 99.5 140 18 213/138 96 Room Air DX & DISP Disposition: Inpatient Departure Condition: Stable Referrals: SANGITA PEREZ DO (PCP) FAUSTO QUINONES MD October 01, 2024 17:50
[2024-10-01] MEDS: AMIODARONE 360MG/200ML BAG 200 ML IV ONE (17:57)
[2024-10-01 18:02] LABS: MAGNESIUM 2.1 mg/dL (1.80-2.40)
[2024-10-01 18:11] LABS: PHOSPHORUS 3.4 mg/dL (2.5-4.9)
[2024-10-01] MEDS: dilTIAZem 125 MG/25 ML INJ 125 MG in 0.9%NACL 100ML 100 ML IV SCH (18:18)
--- NOTE | 2024-10-01 18:26 | HMCIMG ---
CHEST 1VW HISTORY: A. Fib COMPARISON: None FINDINGS: A frontal projection of the chest was obtained. No acute pulmonary infiltrates is seen. The heart is borderline enlarged. Degenerative changes are seen. Prominent vascular markings are seen. No evidence of aortic calcification is seen. IMPRESSION: 1. No acute pulmonary infiltrate is seen.
[2024-10-01] MEDS: metoPROLOL tartRATE 50 MG TAB PO ONE (18:59)
[2024-10-01] MEDS ORDERED: MAG/ALUM/SIMETH 30 ML UDCUP PO PRN (19:00)
[2024-10-01] MEDS ORDERED: morPHINE 2 MG SYG IV PRN (19:00)
[2024-10-01] MEDS ORDERED: guaiFENesin-DM 200/20MG 10ML PO PRN (19:00)
[2024-10-01] MEDS ORDERED: ondanSETRON 4MG INJ IV PRN (19:00)
[2024-10-01] MEDS ORDERED: NITROGLYCERIN 0.4 MG SL TAB SL PRN (19:00)
[2024-10-01] MEDS ORDERED: acetaMINOPHEN 325 MG TAB PO PRN ×2 (19:00)
--- NOTE | 2024-10-01 19:05 | HP ---
[facility] HISTORY & PHYSICAL Date Patient Seen: October 01, 2024 Time of Visit: 18:53 Supervising Physician: DR. NATHAN MÁRQUEZ Primary Care Physician: DR. CHRIS QUESADA Outpatient Specialists: [ ] Inpatient Consults: [ ] PROBLEM LIST: 1. AFIB WITH RVR 2. ESSENTIAL HYPERTENSION 3. TYPE 2 DC 4. LEFT ARM NUMBNESS RULE OUT ISCHEMIC STROKE CHIEF COMPLAINT: Generalized body weakness, palpitation, left arm numbness HPI: Patient is a 88-year-old female with past medical history significant for atrial fibrillation on Cardizem p.o., hypertension, and a surgical history of cholecystectomy, appendectomy, left eye surgery, presented to emergency department complaining of generalized body weakness, palpitation, and left arm numbness that started today. Patient reports that since this afternoon, she has been experiencing a progressive worsening of palpitation associated with generalized body weakness and left arm numbness. Patient decided to come to emergency department for further evaluation and treatment. EKG performed in the emergency department shows AFib with RVR. Patient denies fever, chills, nausea, vomiting, diarrhea, chest pain, cough, dizziness, or any other symptoms. The workup in the emergency department shows a troponin level of 60. In the emergency department, patient was started on amiodarone and Cardizem drip. 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 During my assessment in the emergency department, Cardizem was stopped. Patient will be admitted to ICU for further evaluation and treatment. PAST MEDICAL HX: see above PAST SURGICAL HX: noncontributory SOCIAL HISTORY: No tobacco, ETOH, or illicit drug use Coded Allergies: ciprofloxacin (Unverified Allergy, Mild, 02/07/14) hydralazine (Unverified Allergy, Mild, RASH HANDS, FLUSHING , 04/02/17) REVIEW OF SYSTEMS: 12 point ROS reviewed with patient. Pertinent positives mentioned above. Otherwise negative. PHYSICAL EXAM: GENERAL: alert, weak, awake oriented x 3 HEENT: EOMI, Sclera non icteric, moist mucosa NECK: Supple, no JVD, trachea midline LUNGS: Clear breath sounds bilaterally. No wheezes HEART: AFib with RVR ABD: Abdomen soft, nontender. Bowel sounds present EXT: No clubbing cyanosis or edema NEURO: Alert and oriented to person, follows commands Vital Signs (last 8hr) Date Time Temp Pulse Resp B/P (MAP) Pulse Ox O2 Delivery O2 Flow Rate FiO2 10/01/24 18:41 99.0 88 19 162/63 96 Room Air* 0 10/01/24 18:35 99.0 95 16 172/82 96 Room Air* 0 10/01/24 18:19 98.4 95 16 167/79 96 Room Air* 0 10/01/24 18:18 103 167/79 10/01/24 18:02 98.4 107 20 154/72 94 Room Air* 0 10/01/24 17:45 98.4 102 20 167/70 95 Room Air* 0 10/01/24 17:33 98.4 95 13 172/66 96 Room Air* 0 10/01/24 17:27 98.4 90 15 168/63 98 Room Air* 0 10/01/24 17:13 99.5 107 17 164/77 95 Room Air* 0 10/01/24 16:59 99.5 109 18 156/87 96 Room Air* 0 10/01/24 16:59 150/80 10/01/24 16:56 150/80 10/01/24 16:46 99.5 195 20 188/108 95 Nasal Cannula* 2 10/01/24 16:28 99.5 140 18 213/138 96 Room Air LABS: Hematology Labs: Test 10/01/24 16:47 Range/Units White Blood Count 7.5 4.8-10.8 K/uL Red Blood Count 4.91 4.00-5.50 MIL/uL Hemoglobin 15.0 12.0-16.0 g/dL Hematocrit 44.1 36-48 % Mean Corpuscular Volume 89.8 79-99 fL Mean Corpuscular Hemoglobin 30.5 27.0-33.0 pg Mean Corpuscular Hemoglobin Concent 34.0 32.0-36.0 g/dL Red Cell Distribution Width 12.9 11.0-15.5 % Platelet Count 220 130-400 K/uL Mean Platelet Volume 10.0 7.5-10.5 fL Immature Granulocyte % (Auto) 0.4 0-1 % Neutrophils (%) (Auto) 52.0 40.0-77.0 % Lymphocytes (%) (Auto) 36.1 21.0-51.0 % Monocytes (%) (Auto) 9.8 3.0-13.0 % Eosinophils (%) (Auto) 1.3 0.0-8.0 % Basophils (%) (Auto) 0.4 0.0-5.0 % Neutrophils # (Auto) 3.9 1.8-7.7 K/uL Lymphocytes # (Auto) 2.7 1.0-4.8 K/uL Monocytes # (Auto) 0.7 0.1-1.0 K/uL Eosinophils # (Auto) 0.10 0.00-0.70 K/uL Basophils # (Auto) 0.03 0.00-0.20 K/uL Absolute Immature Granulocyte (auto 0.03 0-1 K/uL Nucleated Red Blood Cells 0.0 0.0-0.19 % Chemistry Labs: Test 10/01/24 18:00 10/01/24 16:47 Range/Units Troponin I High Sensitivity 60 *H 4-50 ng/L Sodium Level 141 136-145 mmol/L Potassium Level 3.6 3.5-5.1 mmol/L Chloride Level 100 L 101-111 mmol/L Carbon Dioxide Level 27 21-32 mmol/L Blood Urea Nitrogen 16 7-18 mg/dL Creatinine 0.8 0.5-1.0 mg/dL Glomerular Filtration Rate Calc 70 >90 mL/min Random Glucose 155 H 70-105 mg/dL Total Calcium 10.0 8.5-10.1 mg/dL Phosphorus Level 3.4 2.5-4.9 mg/dL Magnesium Level 2.10 1.80-2.40 mg/dL Coagulation Labs: Test 10/01/24 16:47 Range/Units Prothrombin Time 10.8 9.6-11.6 SEC Prothromb Time International Ratio 1.02 0.85-1.15 Activated Partial Thromboplast Time 26.1 L 26.3-35.5 SEC DIAGNOSTICS / RADIOLOGY RESULTS: [ ] PLAN NEURO: Minimize central acting medications as possible. Fall Precautions. Well lighted room through the day and minimize interruptions through the night to prevent acute delirium. PT evaluation and treatment Obtain CTA neck, CTA head, CT brain stat Neuro checks every 4 hours PULMONARY: Supplemental 02 as needed Titrate Fio2 to keep Spo2 > or = 90% DuoNebs and CPT as needed IS hourly while awake for pulmonary hygiene Out of bed to chair as tolerated VAP Bundle Vent/BIPAP Settings: [ ] Driving pressure: [ ] P Plat: [ ] Static C: [ ] Static R: [ ] P/F Ratio: [ ] CARDIOVASCULAR: Follow hemodynamics. Titrate vasopressor to keep MAP >65 or systolic blood pressure >95mmHg Aspirin 81 mg p.o. daily Back End Web Developer consult Atorvastatin 40 mg p.o. at bedtime Nitroglycerin 0.4 mg sublingual p.r.n. for moderate chest pain 2D echo cardiology history Morphine 2 mg IV q.4h p.r.n. for severe chest pain Serial troponin level Lovenox 1 milligram/kilogram subcutaneously every 12 hours Continue amiodarone drip Metoprolol 50 mg p.o. b.i.d. DIPS: [ ] LINES: [ ] GI & NUTRITION: Continue nutritional support Aspirations precautions Prokinetic agents and laxatives as needed KIDNEYS & ELECTROLYTES: Strict monitoring of intake and output Obtain UA Obtain UDS Daily weights Avoid nephrotoxic agents Monitor electrolytes and replace as needed Goal urine output of 30mL/hr or 0.5mL/kg/hr Urine output: [ ] Fluid Balance: [ ] ENDOCRINE: Maintain blood glucose between 100-180 at all times. Insulin sliding scale for blood glucose management Obtain TSH INFECTIOUS DISEASE: Trend temperature. Brown-culture if febrile. Obtain UA Micro: [ ] Antibiotics: [ ] HEMATOLOGY & COAGULATION: Monitor H&H. Keep Hgb > 7 Transfuse 1 unit of PRBC for Hgb < 7 Transfuse 1 pack of platelets of platelets < 20, 000 Watch for any signs and symptoms of bleeding SKIN: Pressure ulcer prevention per facility protocol Rehab: PT/OT Prophylaxis: GI: Famotidine DVT: Lovenox Code Status: Full Resuscitation Disposition: Admitted to ICU Other: Total patient care time exceeds 35 minutes excluding all procedures. Case was discussed and seen with my supervising physician Dr. Davey. The above plan was formulated and agreed upon. MARK FORDE October 01, 2024 19:05
--- NOTE | 2024-10-01 19:31 | NUR ---
ASSUMED PT CARE
[2024-10-01] MEDS ORDERED: dilTIAZem 25MG INJ IVP PRN (20:00)
--- NOTE | 2024-10-01 20:02 | CONS ---
Cardiology Consult Note Cardiology Attending: Cece Young Consulting Physician: Jorge List Date of Service: 10/01/24 Reason for Consult: Palpitations HPI: This is an 88-year-old female with a past medical history of HTN, mild aortic stenosis, normal left ventricle systolic function (LVEF 55% by echocardiogram done in 2023) who presents with generalized weakness and fatigue, that began this afternoon. The symptoms began spontaneously, without provocation, in over the ensuing 4 hours remain constant. The symptoms were not exacerbated or alleviated by anything. Associated symptoms included left arm weakness and palpitations. Pertinent negatives include headache, dizziness, syncope, chest pain, chest pressure, shortness of breath, PND, orthopnea, abdominal pain, weight gain, or lower extremity swelling/edema. The persistence of symptoms prompted the patient to come to the hospital where she was found to be in paroxysmal atrial fibrillation with RVR. There was reported torsade de pointes seen on bedside telemetry monitoring, but this was not confirmed after an extensive review of the bedside court monitor in the emergency department and the patient's ECGs (three). PMH: Listed above PSH: None FH: Significant for CAD, HTN, DMII, and CVA. SH: Denies alcohol, tobacco, or illicit drug use. Home medications: Diltiazem 60 mg daily, losartan 100 mg daily, metoprolol succinate 100 mg daily Allergies: Coded Allergies: ciprofloxacin (Unverified Allergy, Mild, 02/07/14) hydralazine (Unverified Allergy, Mild, RASH HANDS, FLUSHING , 04/02/17) Review of systems: General: Denies fever or chills HEENT: Denies changes in vision, earache or sore throat Neck: Denies pain or stiffness Cardio: As per the HPI Pulm: Denies SOB, coughing or wheezing GI: Denies abdominal pain, nausea, vomiting, diarrhea, or constipation. MSK: Denies muscle or back pain. Heme: Denies anemia, easy bruising, or bleeding. Neuro: As per the HPI. Psych: Denies anxiety, depression, or suicidal ideations. Physical Exam: Vital Signs Date Time Temp Pulse Resp B/P (MAP) Pulse Ox O2 Delivery O2 Flow Rate FiO2 10/01/24 19:03 99.0 89 20 161/70 96 Room Air* 0 21 General: Alert and oriented x 3. NAD HEENT: NC/AT. Oral mucosa is moist. Neck: No masses, JVD, or carotid bruits Lungs: NRD. SCM. B/L CTA. No wheezing, rales or rhonchi. Cardio: Rate @ 95bpm. Irregular rhythm. Abdomen: Soft. NT. ND. Normal active bowel sounds x 4 quadrants. Extremities: No edema, clubbing or cyanosis. Plus two pulses noted throughout. Neuro: CN II-XII were grossly intact. No obvious focal deficits. Labs: Laboratory Tests Test 10/01/24 16:47 10/01/24 18:00 10/01/24 19:02 Range/Units White Blood Count 7.5 4.8-10.8 K/uL Red Blood Count 4.91 4.00-5.50 MIL/uL Hemoglobin 15.0 12.0-16.0 g/dL Hematocrit 44.1 36-48 % Mean Corpuscular Volume 89.8 79-99 fL Mean Corpuscular Hemoglobin 30.5 27.0-33.0 pg Mean Corpuscular Hemoglobin Concent 34.0 32.0-36.0 g/dL Red Cell Distribution Width 12.9 11.0-15.5 % Platelet Count 220 130-400 K/uL Mean Platelet Volume 10.0 7.5-10.5 fL Immature Granulocyte % (Auto) 0.4 0-1 % Neutrophils (%) (Auto) 52.0 40.0-77.0 % Lymphocytes (%) (Auto) 36.1 21.0-51.0 % Monocytes (%) (Auto) 9.8 3.0-13.0 % Eosinophils (%) (Auto) 1.3 0.0-8.0 % Basophils (%) (Auto) 0.4 0.0-5.0 % Neutrophils # (Auto) 3.9 1.8-7.7 K/uL Lymphocytes # (Auto) 2.7 1.0-4.8 K/uL Monocytes # (Auto) 0.7 0.1-1.0 K/uL Eosinophils # (Auto) 0.10 0.00-0.70 K/uL Basophils # (Auto) 0.03 0.00-0.20 K/uL Absolute Immature Granulocyte (auto 0.03 0-1 K/uL Nucleated Red Blood Cells 0.0 0.0-0.19 % Prothrombin Time 10.8 9.6-11.6 SEC Prothromb Time International Ratio 1.02 0.85-1.15 Activated Partial Thromboplast Time 26.1 L 26.3-35.5 SEC Sodium Level 141 136-145 mmol/L Potassium Level 3.6 3.5-5.1 mmol/L Chloride Level 100 L 101-111 mmol/L Carbon Dioxide Level 27 21-32 mmol/L Blood Urea Nitrogen 16 7-18 mg/dL Creatinine 0.8 0.5-1.0 mg/dL Glomerular Filtration Rate Calc 70 >90 mL/min Random Glucose 155 H 70-105 mg/dL Total Calcium 10.0 8.5-10.1 mg/dL Phosphorus Level 3.4 2.5-4.9 mg/dL Magnesium Level 2.10 1.80-2.40 mg/dL Troponin I High Sensitivity 27 60 *H 4-50 ng/L Ammonia < 10 L 11-32 umol/L Telemetry (3 hours): Atrial fibrillation, with heart rates ranging between 95 through 162 beats per minute ECG 10/01/2024 (4:41 p.m.): Atrial fibrillation with RVR. Heart rate 162 beats per minute. Assessment: 1. Paroxysmal atrial fibrillation with RVR 2. Generalized weakness/fatigue 3. TIA 4. HTN 5. Mild aortic stenosis Plan: 1. Paroxysmal atrial fibrillation with RVR -substrate: Dilated atrium -inciting factor: unknown, differentials include electrolyte derangement, infection (UTI) -Telemetry (3 hours): Atrial fibrillation, with heart rates ranging between 95 through 162 beats per minute -ECG 10/01/2024 (4:41 p.m.): Atrial fibrillation with RVR. Heart rate 162 beats per minute. -the patient presents with generalized weakness/fatigue that began this afternoon. Associated symptoms included left arm weakness and palpitations. In the ED she is found to be in paroxysmal atrial fibrillation with RVR. She was treated with various medications including diltiazem and was started on amiodarone drip. Additionally she was administered metoprolol tartrate 100 mg x 1 dose. At the time of my evaluation the patient stated that her symptoms that prompted her visit to the emergency department had resolved. -in order to address the above-mentioned arrhythmia we recommend stopping amiodarone IV drip and starting the patient on a diltiazem IV drip at 5 milligrams/hour. We will titrate the IV drip in order to targeted heart rate less than 100 beats per minute at rest. If we are unable to control the patient's heart rate using diltiazem, then we will add metoprolol tartrate to the patient's medication regimen -in addition we recommend ordered a UA and urine culture to look for an underlying infection. Additionally we recommend instituting an electrolyte replacement protocol in order to keep potassium greater than 4.0 and magnesium greater than 2.0. -CHADS 2 vas score: 4. The patient initially complained of generalized weakness, with left arm weakness. These findings are highly concerning for a TIA, specifically in the setting of new onset paroxysmal atrial fibrillation. With that being said we will recommend ordering a CT scan of the head to rule out hemorrhagic stroke. If the scan is negative, then we recommend starting the patient on heparin IV drip, as per protocol. 2. HTN -stable -we recommend proceeding with a TIA/CVA workup and if negative then we recommend restarting the patient's home regimen of the losartan 100 mg daily. Thank you for this interesting consult and allowing us to participate in the care of your patient. Further recommendations to follow. CECE YOUNG MD October 01, 2024 20:01
--- NOTE | 2024-10-01 20:30 | NUR ---
STOPPED AMIO DRIP THEN STARTED DILTIAZEM DRIP
[2024-10-01] MEDS: dilTIAZem 125 MG/25 ML INJ 125 MG in 0.9%NACL 100ML 100 ML IV PRN (20:31)
[2024-10-01] MEDS ORDERED: IOHEXOL 350 MG/ML 100ML INFUS..BTL IV ONE (20:32)
--- NOTE | 2024-10-01 20:32 | NUR ---
ROUNDED BY DR LEMON, ORDERS MADE. PT IS TO HAVE HER CT TO R/O BLEED, BEFORE STARTING HEP DRIP TO DC CURRENT AMIO DRIP AND SHIFT IT BACK TO DILTIAZEM DRIP
--- NOTE | 2024-10-01 20:34 | NUR ---
SECURED CONSENT, SENT PT TO CT.
--- NOTE | 2024-10-01 20:35 | NUR ---
HOME MEDS NOT AVAIL AT BEDSIDE
--- NOTE | 2024-10-01 20:47 | HMCIMG ---
CT HEAD/BRAIN W/O CONTRAST HISTORY: Left arm numbness COMPARISON: None TECHNIQUE: Multiple sequential axial images of the head were obtained from the base of the skull through vertex. Patient was not given contrast through intravenous route. FINDINGS: The ventricles and extraventricular CSF spaces are dilated consistent with cerebral atrophy. Nonspecific white matter changes seen. There is no midline shift, mass effect or herniation. No acute intracranial bleed is seen. Visualized portion of the paranasal sinuses are grossly within normal limits. There is atherosclerosis. IMPRESSION: 1. No acute intracranial bleed is seen. 2. Atrophy with white matter changes. CT was performed with one or more following dose reduction techniques: automated exposure control, adjustment of the mA and kv according to patient's size, or use of a iterative reconstruction technique.
[2024-10-01 20:53] LABS: APPEARANCE,URINE CLEAR (CLEAR); BILIRUBIN,URINE NEGATIVE (NEGATIVE); COLOR,URINE COLORLESS (YELLOW); GLUCOSE, URINE (UA) 50 mg/dL (NEGATIVE); KETONES,URINE NEGATIVE (NEGATIVE); LEUKOCYTE ESTERASE ,URINE NEGATIVE Leu/uL (NEGATIVE); NITRATE,URINE 1+ (NEGATIVE); PROTEIN,URINE 200 mg/dL (NEGATIVE); UROBILINOGEN,URINE 0.2 mg/dL (0.2-1.0)
[2024-10-01 20:56] LABS: BACTERIA,URINE RARE /HPF (None Seen); RBC,URINE 0-1 /HPF (0-1); SQUAMOUS EPITHELIAL CELL,UR RARE /HPF (0-2)
[2024-10-01] MEDS ORDERED: ENOXAPARIN SODIUM 60 MG/0.6 ML SQ SCH (21:00)
[2024-10-01 21:04] LABS: AMPHET/METH SCREEN,URINE NEGATIVE (NEGATIVE); BARBITURATE SCREEN, URINE NEGATIVE (NEGATIVE); BENZODIAZEPINES SCREEN,URINE NEGATIVE (NEGATIVE); CANNABINOID SCREEN,URINE NEGATIVE (NEGATIVE); COCAINE SCREEN,URINE NEGATIVE (NEGATIVE); OPIATE SCREEN,URINE NEGATIVE (NEGATIVE); PHENCYCLIDINE SCREEN,URINE NEGATIVE (NEGATIVE)
[2024-10-01] MEDS: metoPROLOL tartRATE 50 MG TAB PO SCH (21:14)
[2024-10-01] MEDS: FAMOTIDINE 20MG TAB PO SCH (21:14)
[2024-10-01] MEDS: atorVAStatin 40 MG TABLET PO SCH (21:14)
--- NOTE | 2024-10-01 21:45 | HMCIMG ---
CT ANGIO HEAD AND NECK REASON: left arm numbness TECHNIQUE: Images were obtained from thoracic inlet through the vertex of the skull before and after bolus IV infusion of 100 ml of Isovue 350. 2D and 3D multiplanar reconstruction images were obtained in the head and neck. CT was performed with one or more of the following dose reduction techniques: automated exposure control, adjustment of the mA and/or kV according to patient size, or use of iterative reconstruction technique FINDINGS: Post contrast images in the neck show normal-appearing common and internal carotid arteries. Bifurcations demonstrate mild atherosclerotic plaque. Images in the brain demonstrate normal-appearing internal carotid arteries. Anterior, middle and posterior cerebral arteries appear normal. Posterior fossa vessels are unremarkable as well. There is no evidence of aneurysm or AVM. There is no evidence of focal vessel occlusion. 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
[2024-10-01] MEDS: HEParin 5,000 UNIT VIAL IV PRN (21:59)
[2024-10-01] MEDS: HEParin 25,000 UNITS/250ML D5W 250 ML IV SCH (22:07)
[2024-10-01] MEDS: cefTRIAXone 2GM VIAL IVPB SCH (22:46)
[2024-10-02] VITALS (16 sets, daily range): BP systolic 131–222; BP diastolic 65–122; PULSE 66–148; RESP 18–23; TEMP 97.6–98.4; O2SAT 94–95
--- NOTE | 2024-10-02 00:04 | NUR ---
AFIB SUSTAINED 135 TO 150 WAS CALLED BY TELEMETRY MONITORING THAT PATIENT OFF CARDIZEM DRIP SINCE 10/02/24 @ 0200, and with heart rate 88 to 95 as of now, IS NOTED WITH SUSTAINED AFIB 135 TO 150, WENT TO CHECK ON THE PATIENT, BLOOD PRESSURE HIGH 188/80. AND PATIENT VERY ANXIOUS AND AGGRESSIVE, CALLED DR LEMON AND INFORMED OF THE SITUATION, ADVISE TO RESTART CARDIZEM DRIP, AND GET SOMETHING FOR ANXIETY FROM PRIMARY, CALLED DRISS PEREZ [facility] FOR BENCHMARK TO INFORM, ORDERS WERE RECEIVED FOR METOPROLOL 5 MG ONCE AND 0.5 MG OF ATIVAN PO ONCE, WE'LL CONT TO MONITOR Addendum: 10/03/24 at 0789 by SANDIE PEÑA RN RN Actual Time of this note is 10/02/24 @ 1528
--- NOTE | 2024-10-02 00:11 | NUR ---
AW BENCHMARK TO CALL ME BACK FOR POSSIBLE DOWNGRADE
--- NOTE | 2024-10-02 00:22 | NUR ---
CAN DOWNGRADE PT TO MED TELE PER BENCHMARK NABI- INFORMED HOUSE SUP
--- NOTE | 2024-10-02 00:50 | NUR ---
CALLED FOR REPORT, FLOOR NURSE NOT AVAIL
[2024-10-02] MEDS ORDERED: DILT60TA3 PO (02:08)
[2024-10-02] MEDS ORDERED: hydrALAZine 20MG/ML VIAL IV PRN (04:00)
[2024-10-02] MEDS: hydrALAZine 20MG/ML VIAL IV PRN (04:04)
[2024-10-02] MEDS: ASPIRIN 81 MG EC TAB PO SCH (08:48)
[2024-10-02] MEDS ORDERED: PoTASSium chl 10% ELIXIR 20MEQ 20 MEQ/15 ML UDCUP PO PRN (11:30)
[2024-10-02] MEDS ORDERED: PoTASSium chloRIDE 20MEQ/100ML 100 ML IV PRN (11:30)
[2024-10-02] MEDS: PoTASSium chloRIDE 20MEQ ER 20 MEQ ERTAB PO PRN (11:46)
--- NOTE | 2024-10-02 13:03 | EKG ---
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1935 Requested By: FAUSTO QUINONES Order Number: [id number] Reading MD: Meharn Hall Measurements Intervals [place] Rate: 162 P: 0 NC: 0 QRS: 11 QRSD: 80 T: 196 QT: 232 QTc: 399 Interpretive Statements Atrial fibrillation with rapid V-rate Ventricular premature complex Repolarization abnormality, prob rate related Compared to ECG 08/12/2024 11:49:23 Ventricular premature complex(es) now present Early repolarization now present Sinus rhythm no longer present Myocardial infarct finding no longer present Electronically Signed On 10-04-2024 22:13:52 CDT by Mehran Hall Please click the below link to view image of tracing.
--- NOTE | 2024-10-02 13:03 | EKG ---
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
[2024-10-02 16:19] LABS: INR 1.12 (0.85-1.15); PROTHROMBIN TIME 11.7 SEC (9.6-11.6)
[2024-10-02 16:21] LABS: PARTIAL THROMBOPLASTIN TIME 84.8 SEC (26.3-35.5)
--- NOTE | 2024-10-02 16:53 | PN ---
[facility] PROGRESS NOTE Date Patient Seen: October 02, 2024 Time of Visit: 16:51 Supervising Physician: Dr. Davey Primary Care Physician: DR. CHRIS QUESADA Outpatient Specialists: [ ] Inpatient Consults: [ ] PROBLEM LIST: 1. AFIB WITH RVR 2. ESSENTIAL HYPERTENSION 3. TYPE 2 NM 4. LEFT ARM NUMBNESS RULE OUT ISCHEMIC STROKE INTERVAL HISTORY: 10/02/2024: At the time of my evaluation, the patient is lying in bed. Family members are present at the bedside. The staff nurse reports no acute events. On the monitor, the patient remains afebrile, no tachycardia or tachypnea and marginally hypertensive. No new laboratory data for review today. No new imaging for review. Currently, the patient is on a heparin drip and has been transitioned to metoprolol p.o.. No other complaint. REVIEW OF SYSTEMS: 12 point ROS reviewed with patient. Pertinent positives mentioned above. Otherwise negative. PHYSICAL EXAM: GENERAL: alert, weak, awake oriented x 3 HEENT: EOMI, Sclera non icteric, moist mucosa NECK: Supple, no JVD, trachea midline LUNGS: Clear breath sounds bilaterally. No wheezes HEART: AFib with RVR ABD: Abdomen soft, nontender. Bowel sounds present EXT: No clubbing cyanosis or edema NEURO: Alert and oriented to person, follows commands Vital Signs (last 8hr) Date Time Temp Pulse Resp B/P (MAP) Pulse Ox O2 Delivery O2 Flow Rate FiO2 10/02/24 12:00 97.7 85 18 143/94 96 Room Air LABS: Hematology Labs: Test 10/01/24 16:47 Range/Units White Blood Count 7.5 4.8-10.8 K/uL Red Blood Count 4.91 4.00-5.50 MIL/uL Hemoglobin 15.0 12.0-16.0 g/dL Hematocrit 44.1 36-48 % Mean Corpuscular Volume 89.8 79-99 fL Mean Corpuscular Hemoglobin 30.5 27.0-33.0 pg Mean Corpuscular Hemoglobin Concent 34.0 32.0-36.0 g/dL Red Cell Distribution Width 12.9 11.0-15.5 % Platelet Count 220 130-400 K/uL Mean Platelet Volume 10.0 7.5-10.5 fL Immature Granulocyte % (Auto) 0.4 0-1 % Neutrophils (%) (Auto) 52.0 40.0-77.0 % Lymphocytes (%) (Auto) 36.1 21.0-51.0 % Monocytes (%) (Auto) 9.8 3.0-13.0 % Eosinophils (%) (Auto) 1.3 0.0-8.0 % Basophils (%) (Auto) 0.4 0.0-5.0 % Neutrophils # (Auto) 3.9 1.8-7.7 K/uL Lymphocytes # (Auto) 2.7 1.0-4.8 K/uL Monocytes # (Auto) 0.7 0.1-1.0 K/uL Eosinophils # (Auto) 0.10 0.00-0.70 K/uL Basophils # (Auto) 0.03 0.00-0.20 K/uL Absolute Immature Granulocyte (auto 0.03 0-1 K/uL Nucleated Red Blood Cells 0.0 0.0-0.19 % Chemistry Labs: Test 10/01/24 19:02 10/01/24 18:00 10/01/24 16:47 Range/Units Ammonia < 10 L 11-32 umol/L Troponin I High Sensitivity 60 *H 4-50 ng/L Sodium Level 141 136-145 mmol/L Potassium Level 3.6 3.5-5.1 mmol/L Chloride Level 100 L 101-111 mmol/L Carbon Dioxide Level 27 21-32 mmol/L Blood Urea Nitrogen 16 7-18 mg/dL Creatinine 0.8 0.5-1.0 mg/dL Glomerular Filtration Rate Calc 70 >90 mL/min Random Glucose 155 H 70-105 mg/dL Total Calcium 10.0 8.5-10.1 mg/dL Phosphorus Level 3.4 2.5-4.9 mg/dL Magnesium Level 2.10 1.80-2.40 mg/dL Coagulation Labs: Test 10/02/24 16:00 Range/Units Prothrombin Time 11.7 H 9.6-11.6 SEC Prothromb Time International Ratio 1.12 0.85-1.15 Activated Partial Thromboplast Time 84.8 #H 26.3-35.5 SEC DIAGNOSTICS / RADIOLOGY RESULTS: [ ] PLAN 10/02/2024: For now, going to continue current management for the patient. We will continue beta-luis therapy and follow the heart rate trend. I am going to follow the 2D echo that was ordered and is pending. We will repeat surveillance labs in the morning. The patient will remain on empiric antibiotic therapy with Rocephin for suspected urinary tract infection. I discussed the findings and plan for further management with the patient and family members. We will monitor the patient's progress and response to management. We will continue to provide general supportive care, GI and DVT prophylaxis. Further orders per attending MD and hospital course. NEURO: Minimize central acting medications as possible. Maintain fall precautions, adequate lighting during the day PULMONARY: Supplemental 02 as needed. Maintain aspiration precautions at all times CARDIOVASCULAR: Follow hemodynamics. Vital signs per facility protocol GI & NUTRITION: Continue with nutritional support. Continue stool softeners and laxatives as needed. KIDNEYS & ELECTROLYTES: Strict monitoring of intake, output and overall fluid balance. Avoid nephrotoxic medications to the extent possible. Medications to be dosed according to renal function. Monitor electrolytes and replace as needed ENDOCRINE: Maintain blood glucose between 100-180 at all times. Hypoglycemia protocol in place INFECTIOUS DISEASE: Trend temperature, WBC and procalcitonin level Follow cultures, deescalate antibiotics as soon as possible. Panculture if new onset fever ONCOLOGY/HEMATOLOGY/COAGULATION: Monitor for s/s of bleeding Monitor hemoglobin, coagulation studies as needed SKIN: Pressure ulcer prevention per facility protocol Specialty mattress ORTHO/REHAB: Continue PT/OT Prophylaxis: Continue GI and DVT prophylaxis Code Status: Full Resuscitation Disposition: TBD Other: Patient was seen and case discussed with jodie VILLATORO. Plan of care was discussed and agreed upon. NATALIYA LAMBERT NP October 02, 2024 16:52
[2024-10-02] MEDS: metoPROLOL tartRATE 1 MG/ML 5ML VIAL IV ONE ×2 (17:31→23:34)
--- NOTE | 2024-10-02 17:33 | NUR ---
INITIAL/DCP HOME Met w pt and dtr Patria Anne-Marie Geri this afternoon to discuss dcp. Pt mentions that she lives alone. She is fairly independent w ambulation and ADls. Dtr Patria will sometimes stay overnight w pt. Pt is still able to preform her cooking and cleaning. Dtr provides transportation where needed. DME includes a cane and rollator. Preferred pharmacy is [facility]. Pt denies any insecurities with food, usp, and/or utilities. Discharge goal is to return home. Addendum: 10/03/24 at 1736 by LUZ ELENA ALBRECHT CM Amended: Links added.
[2024-10-02] MEDS: metoPROLOL tartRATE 50 MG TAB PO SCH (21:23)
[2024-10-02 22:43] LABS: INR 1.09 (0.85-1.15); PROTHROMBIN TIME 11.5 SEC (9.6-11.6)
[2024-10-02 22:44] LABS: PARTIAL THROMBOPLASTIN TIME 66.3 SEC (26.3-35.5)
[2024-10-02] MEDS: LORazepam 0.5 MG TABLET PO ONE (23:29)
[2024-10-03] VITALS (13 sets, daily range): BP systolic 129–169; BP diastolic 62–98; PULSE 68–115; RESP 18–20; TEMP 97.6–98; O2SAT 95–96
--- NOTE | 2024-10-03 00:07 | HMCSR ---
APPROVED REPORT EXAM: Two-dimensional and M-mode echocardiogram with Doppler and color Doppler. INDICATION ICD: NSTEMI 2D Dimensions RVDd3.2 cmLVEF(%)46.3 (>50%)LVED Vol(simp.)57.0 mL IVSd1.0 (0.7-1.1cm)FS(%)22 %LVES Vol(simp.)30.0 mL LVDd3.1 (3.8-5.6cm)LA (2D)4.2 (1.6-4.0cm)LVEF(%, simp.)48 % PWd1.1 (0.7-1.1cm)Ao Root(2D)2.6 (2.0-3.7cm)LA ESV INDEX (BP)46.22 mL/m2 LVDs2.4 (2.5-4.0cm)LVOT diam1.8 (1.8-2.4cm) IVC diam1.9 cm Deformation Strain Apical 4-9.4 % Apical 2-9.2 % Apical 3-9.1 % Global Strain-9.2 % M-Mode Dimensions EPSS1.1 cm LA (MM)4.2 (1.6-4.0cm) Ao Root(MM)2.1 (2.0-3.7cm) Aortic Valve AoV Vmax1.9 m/Adonis Peak GR14.9 mmHgLVOT Vmax0.6 m/s AoV VTI0.3 mAo Mean GR8.2 mmHgLVOT VTI0.12 m JORGE (VMAX)0.89 cm2Al P1/2T375 msAVA (VTI) 0.9 cm2 Mitral Valve MV E Prny958.2 cm/sDECEL Pusn696 ms MV A Vmax28.8 cm/sP 1/2 T45 ms E/A ratio3.5MVA (PHT)4.8 cm2 TDI E/E' Ceoqli25.0E/E' Zkcxjwd79.2 Medial E' Peak V6.33 cm/sLateral E' Peak V8.30 cm/s Pulmonary Valve PV Vmax0.7 m/s PV Peak GR1.9 mmHg Tricuspid Valve TR Vmax2.9 m/sRAP (EST) 3 eqRuKIBG85.5 mmHg TR Peak GR43.5 mmHg Left Ventricle The left ventricle is normal size. There is mild global hypokinesis of the left ventricle. Moderate c oncentric left ventricular hypertrophy. Left ventricle systolic function is mildly depressed, estimat ed LVEF 45 to 50%. Stage III diastolic dysfunction. Right Ventricle The right ventricle is normal size. The right ventricular systolic function is normal. Atria The left atrium is moderately dilated, 46 mL/m. The right atrium is dilated. Aortic Valve Aortic valve trileaflet. The leaflets are mildly thickened and calcified. Moderate aortic regurgitati on, pressure half-time 350 ms. Mild aortic stenosis, peak velocity 2.2 m/s, mean gradient 11 mmHg. Mitral Valve Mild mitral annular calcification is noted. The leaflets are mildly thickened and calcified. Mild jose ral regurgitation. There is no mitral valve stenosis. Tricuspid Valve The tricuspid valve is normal in structure. Moderate tricuspid regurgitation. RVSP is 43 mmHg. Pulmonic Valve Pulmonic valve is not well visualized. Great Vessels The aortic root is normal in size. The IVC is normal in size and collapses >50% with inspiration. Pericardium There is no pericardial effusion. Conclusion The left atrium is moderately dilated, 46 mL/m. The right atrium is dilated. Moderate concentric left ventricular hypertrophy. There is mild global hypokinesis of the left ventricle. Left ventricle systolic function is mildly depressed, estimated LVEF 45 to 50%. Stage III diastolic dysfunction. Mild aortic stenosis, peak velocity 2.2 m/s, mean gradient 11 mmHg. Moderate aortic regurgitation, pressure half-time 350 ms. Mild mitral regurgitation. Moderate tricuspid regurgitation. PASP is 46 mmHg. There is no pericardial effusion.
[2024-10-03] MEDS: diazePAM 5 MG/ML 2 ML SYG IV ONE (01:07)
[2024-10-03 04:09] LABS: BASOPHILS # (AUTO) 0.03 K/uL (0.00-0.20); BASOPHILS % (AUTO) 0.4 % (0.0-5.0); EOSINOPHILS # (AUTO) 0.07 K/uL (0.00-0.70); EOSINOPHILS % (AUTO) 0.9 % (0.0-8.0); HEMATOCRIT 41.6 % (36-48); IMMATURE GRANULOCYTE ABSOLUTE 0.03 K/uL (0-1); LYMPHOCYTES # (AUTO) 1.5 K/uL (1.0-4.8); LYMPHOCYTES % (AUTO) 19.2 % (21.0-51.0); MEAN CORPUSCULAR HEMOGLOBIN 30.4 pg (27.0-33.0); MEAN CORPUSCULAR HGB CONC 33.7 g/dL (32.0-36.0); MEAN CORPUSCULAR VOLUME 90.2 fL (79-99); MONOCYTES # (AUTO) 0.5 K/uL (0.1-1.0); MONOCYTES % (AUTO) 6.4 % (3.0-13.0); NEUTROPHILS # (AUTO) 5.7 K/uL (1.8-7.7); NEUTROPHILS % (AUTO) 72.7 % (40.0-77.0); PLATELET COUNT (AUTO) 228 K/uL (130-400); RED BLOOD CELL COUNT(AUTO) 4.61 MIL/uL (4.00-5.50); RED CELL DISTRIBUTION WIDTH 13.2 % (11.0-15.5); WHITE BLOOD COUNT (AUTO) 7.8 K/uL (4.8-10.8)
[2024-10-03 04:36] LABS: CREATININE 0.8 mg/dL (0.5-1.0); POTASSIUM 4.2 mmol/L (3.5-5.1)
--- NOTE | 2024-10-03 10:07 | PN ---
[facility] Cardiology Progress Note PROBLEM LIST: [New onset atrial fibrillation with RVR Chads2 Vasc score of at least four Anticoagulated 2D echo with EF 45-50%, mild 2023 echo EF 55%, mild Hypertension Octogenarian] INTERVAL HISTORY: [Patient remains in atrial fibrillation. Yesterday afternoon and last night she had episode of RVR requiring IV metoprolol, and was then placed back on the Cardizem drip. She also required a dose of Ativan, followed by some diazepam. Yesterday her metoprolol was increased to 100 mg b.i.d. Home dose of metoprolol succinate is 100 mg daily. She is also on diltiazem 60 mg daily and losartan 100 mg daily at home. To recap she presented on Friday afternoon with new onset AFib with RVR, symptoms starting earlier that day. She was placed on a Cardizem drip on admission, then metoprolol was started at 50 mg b.i.d, increased yesterday. This morning she states she is not feeling too well. She describes a vertigo like sensation that happens even if she is lying supine in bed. She did feel some palpitations last night but they were no where near as forceful as the ones she felt two days ago on admission. She has been rate controlled on the Cardizem drip. No chest pain, shortness of breath, leg edema. No reports of bleeding. Patient feels like she is seeing people at an angle] PHYSICAL EXAMINATION: Vital Signs (Last 48hrs) Date Time Temp Pulse Resp B/P (MAP) Pulse Ox O2 Delivery O2 Flow Rate FiO2 10/03/24 08:20 97.5 93 18 148/95 96 Room Air 10/03/24 03:48 97.9 80 20 129/62 98 Room Air 10/03/24 01:50 96 20 149/86 96 Nasal Cannula 2.0 10/03/24 01:20 94 18 165/80 96 Nasal Cannula 2.0 10/03/24 00:00 115 20 151/94 95 Room Air 10/02/24 23:50 118 20 155/95 95 Room Air 10/02/24 23:35 135 20 162/88 95 Room Air 10/02/24 23:34 128 180/78 10/02/24 23:30 128 20 180/78 95 Room Air 10/02/24 23:22 145 188/70 5/31/25 23:15 98.1 148 23 222/122 91 Room Air 10/02/24 20:00 95 Room Air* 0 10/02/24 20:00 97.5 114 20 151/107 95 Room Air 10/02/24 17:31 126 159/89 10/02/24 16:00 97.9 126 18 159/89 95 Room Air 10/02/24 12:00 97.7 85 18 143/94 96 Room Air 10/02/24 08:00 97.7 82 18 149/70 95 Room Air 10/02/24 08:00 95 Room Air* 0 10/02/24 05:57 98.4 82 18 96 Room Air 10/02/24 05:20 131/65 10/02/24 04:50 78 10/02/24 04:26 98.4 82 18 181/78 96 Room Air 10/02/24 02:46 160/81 10/02/24 02:37 67 10/02/24 02:13 98.2 75 18 178/110 94 Room Air 10/02/24 01:45 66 10/02/24 01:45 94 Room Air* 0 10/02/24 00:56 98.8 68 18 168/71 98 Room Air* 0 10/01/24 23:06 98.4 71 18 158/81 98 Room Air* 0 10/01/24 20:31 92 168/65 10/01/24 20:00 98.4 92 18 165/65 99 Room Air* 0 10/01/24 19:03 99.0 89 20 161/70 96 Room Air* 0 10/01/24 18:56 99.0 87 18 172/84 96 Room Air* 0 10/01/24 18:41 99.0 88 19 162/63 96 Room Air* 0 10/01/24 18:35 99.0 95 16 172/82 96 Room Air* 0 10/01/24 18:19 98.4 95 16 167/79 96 Room Air* 0 10/01/24 18:18 103 167/79 10/01/24 18:02 98.4 107 20 154/72 94 Room Air* 0 10/01/24 17:45 98.4 102 20 167/70 95 Room Air* 0 10/01/24 17:33 98.4 95 13 172/66 96 Room Air* 0 21 10/01/24 17:27 98.4 90 15 168/63 98 Room Air* 0 21 10/01/24 17:13 99.5 107 17 164/77 95 Room Air* 0 21 10/01/24 16:59 99.5 109 18 156/87 96 Room Air* 0 21 10/01/24 16:59 150/80 10/01/24 16:56 150/80 10/01/24 16:46 99.5 195 20 188/108 95 Nasal Cannula* 2 28 10/01/24 16:28 99.5 140 18 213/138 96 Room Air General: Resting comfortably, no acute distress. HEENT: Atraumatic. Hearing is intact. No facial asymmetry, nasal discharge, icterus or lid lag. Cardiovascular: Irregularly irregular. 2/6 murmur. No edema. Respiratory: Lungs clear to the bases. No retractions, wheezes or rhonchi. Gastrointestinal: Benign, soft, nontender, nondistended. Extremities: No amputations. Range of motion is grossly normal. Neurology/Psychiatry: No tremors. Speech is clear. Alert and oriented x 3. Cooperative and pleasant. LABORATORY DATA: [ Laboratory Tests Test 10/02/24 10:06 10/02/24 16:00 10/02/24 22:09 10/03/24 03:34 Activated Partial Thromboplast Time 119.8 SEC (26.3-35.5) *H 84.8 SEC (26.3-35.5) #H 66.3 SEC (26.3-35.5) H 64.6 SEC (26.3-35.5) H Prothrombin Time 11.7 SEC (9.6-11.6) H 11.5 SEC (9.6-11.6) Prothromb Time International Ratio 1.12 (0.85-1.15) 1.09 (0.85-1.15) White Blood Count 7.8 K/uL (4.8-10.8) Red Blood Count 4.61 MIL/uL (4.00-5.50) Hemoglobin 14.0 g/dL (12.0-16.0) Hematocrit 41.6 % (36-48) Mean Corpuscular Volume 90.2 fL (79-99) Mean Corpuscular Hemoglobin 30.4 pg (27.0-33.0) Mean Corpuscular Hemoglobin Concent 33.7 g/dL (32.0-36.0) Red Cell Distribution Width 13.2 % (11.0-15.5) Platelet Count 228 K/uL (130-400) Mean Platelet Volume 10.7 fL (7.5-10.5) H Immature Granulocyte % (Auto) 0.4 % (0-1) Neutrophils (%) (Auto) 72.7 % (40.0-77.0) Lymphocytes (%) (Auto) 19.2 % (21.0-51.0) L Monocytes (%) (Auto) 6.4 % (3.0-13.0) Eosinophils (%) (Auto) 0.9 % (0.0-8.0) Basophils (%) (Auto) 0.4 % (0.0-5.0) Neutrophils # (Auto) 5.7 K/uL (1.8-7.7) Lymphocytes # (Auto) 1.5 K/uL (1.0-4.8) Monocytes # (Auto) 0.5 K/uL (0.1-1.0) Eosinophils # (Auto) 0.07 K/uL (0.00-0.70) Basophils # (Auto) 0.03 K/uL (0.00-0.20) Absolute Immature Granulocyte (auto 0.03 K/uL (0-1) Nucleated Red Blood Cells 0.0 % (0.0-0.19) Sodium Level 139 mmol/L (136-145) Potassium Level 4.2 mmol/L (3.5-5.1) Chloride Level 103 mmol/L (101-111) Carbon Dioxide Level 27 mmol/L (21-32) Blood Urea Nitrogen 13 mg/dL (7-18) Creatinine 0.8 mg/dL (0.5-1.0) Glomerular Filtration Rate Calc 70 mL/min (>90) Random Glucose 153 mg/dL (70-105) H Total Calcium 9.2 mg/dL (8.5-10.1) ] RADIOLOGY: [2D echo showed slightly diminished EF 45-50%, mild ] PLAN: [. Patient had episodes of RVR last night requiring two doses of IV metoprolol, followed by resumption of Cardizem drip. Will resume oral diltiazem 30 mg q.6, with a goal of stopping the drip. continue the metoprolol. T ransition to reduced dose Eliquis given her age and weight. Did discuss performing LUDA cardioversion, which she is agrees to after some consideration FELICITY GAUTHIER PAC Oct 03, 2024 10:07
--- NOTE | 2024-10-03 10:50 | PN ---
[facility] PROGRESS NOTE Date Patient Seen: Oct 03, 2024 Time of Visit: 10:48 Supervising Physician: Dr. Finley Primary Care Physician: DR. CHRIS QUESADA Outpatient Specialists: [ ] Inpatient Consults: [ ] PROBLEM LIST: 1. AFIB WITH RVR 2. ESSENTIAL HYPERTENSION 3. TYPE 2 LA 4. 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 VERTIGO INTERVAL HISTORY: 10/02/2024: At the time of my evaluation, the patient is lying in bed. Family members are present at the bedside. The staff nurse reports no acute events. On the monitor, the patient remains afebrile, no tachycardia or tachypnea and m arginally hypertensive. No new laboratory data for review today. No new imaging for review. Currently, the patient is on a heparin drip and has been transitioned to metoprolol p.o.. No other complaint. 10/03/2024: At the time of my evaluation, the patient is lying in bed. She does appear somewhat confused. The patient is also making mentioned regarding the spinning sensation in the room and visual changes. The daughter is present at the bedside. Staff nurse made mentioned that the patient did receive a dose of Valium and Ativan overnight due to confusion and agitation currently, the patient is on room air and vital signs are unremarkable. Overnight, the Cardizem drip was resume due to AFib. Laboratory data was unremarkable. Microbiology data showed mixed bunny contamination, no further workup was carried forth. No new imaging for review today. No other complaint. REVIEW OF SYSTEMS: 12 point ROS reviewed with patient. Pertinent positives mentioned above. Otherwise negative. PHYSICAL EXAM: GENERAL: alert, weak, awake oriented x 3 HEENT: EOMI, Sclera non icteric, moist mucosa NECK: Supple, no JVD, trachea midline LUNGS: Clear breath sounds bilaterally. No wheezes HEART: AFib with RVR ABD: Abdomen soft, nontender. Bowel sounds present EXT: No clubbing cyanosis or edema NEURO: Alert and oriented to person, follows commands Vital Signs (last 8hr) Date Time Temp Pulse Resp B/P (MAP) Pulse Ox O2 Delivery O2 Flow Rate FiO2 10/03/24 10:06 68 18 140/83 96 Room Air 10/03/24 10:03 97 18 146/83 94 Room Air 10/03/24 10:00 95 18 147/98 95 Room Air 10/03/24 08:20 97.5 93 18 148/95 96 Room Air 10/03/24 03:48 97.9 80 20 129/62 98 Room Air LABS: Hematology Labs: Test 10/03/24 03:34 Range/Units White Blood Count 7.8 4.8-10.8 K/uL Red Blood Count 4.61 4.00-5.50 MIL/uL Hemoglobin 14.0 12.0-16.0 g/dL Hematocrit 41.6 36-48 % Mean Corpuscular Volume 90.2 79-99 fL Mean Corpuscular Hemoglobin 30.4 27.0-33.0 pg Mean Corpuscular Hemoglobin Concent 33.7 32.0-36.0 g/dL Red Cell Distribution Width 13.2 11.0-15.5 % Platelet Count 228 130-400 K/uL Mean Platelet Volume 10.7 H 7.5-10.5 fL Immature Granulocyte % (Auto) 0.4 0-1 % Neutrophils (%) (Auto) 72.7 40.0-77.0 % Lymphocytes (%) (Auto) 19.2 L 21.0-51.0 % Monocytes (%) (Auto) 6.4 3.0-13.0 % Eosinophils (%) (Auto) 0.9 0.0-8.0 % Basophils (%) (Auto) 0.4 0.0-5.0 % Neutrophils # (Auto) 5.7 1.8-7.7 K/uL Lymphocytes # (Auto) 1.5 1.0-4.8 K/uL Monocytes # (Auto) 0.5 0.1-1.0 K/uL Eosinophils # (Auto) 0.07 0.00-0.70 K/uL Basophils # (Auto) 0.03 0.00-0.20 K/uL Absolute Immature Granulocyte (auto 0.03 0-1 K/uL Nucleated Red Blood Cells 0.0 0.0-0.19 % Chemistry Labs: Test 10/03/24 03:34 10/01/24 19:02 10/01/24 18:00 10/01/24 16:47 Range/Units Sodium Level 139 136-145 mmol/L Potassium Level 4.2 3.5-5.1 mmol/L Chloride Level 103 101-111 mmol/L Carbon Dioxide Level 27 21-32 mmol/L Blood Urea Nitrogen 13 7-18 mg/dL Creatinine 0.8 0.5-1.0 mg/dL Glomerular Filtration Rate Calc 70 >90 mL/min Random Glucose 153 H 70-105 mg/dL Total Calcium 9.2 8.5-10.1 mg/dL Ammonia < 10 L 11-32 umol/L TSH 3rd Generation 6.380 H 0.450-4.500 uIU/mL Troponin I High Sensitivity 60 *H 4-50 ng/L Phosphorus Level 3.4 2.5-4.9 mg/dL Magnesium Level 2.10 1.80-2.40 mg/dL Coagulation Labs: Test 10/03/24 03:34 10/02/24 22:09 Range/Units Activated Partial Thromboplast Time 64.6 H 26.3-35.5 SEC Prothrombin Time 11.5 9.6-11.6 SEC Prothromb Time International Ratio 1.09 0.85-1.15 DIAGNOSTICS / RADIOLOGY RESULTS: [ ] PLAN 10/02/2024: For now, going to continue current management for the patient. We will continue beta-luis therapy and follow the heart rate trend. I am going to follow the 2D echo that was ordered and is pending. We will repeat surveillance labs in the morning. The patient will remain on empiric antibiotic therapy with Rocephin for suspected urinary tract infection. I discussed the findings and plan for further management with the patient and family members. We will monitor the patient's progress and response to management. We will continue to provide general supportive care, GI and DVT prophylaxis. Further orders per attending MD and hospital course. 10/03/2024: I am going to request a orthostatic blood pressure monitoring as the patient is complaining of the room spinning sensation while lying down, also is feeling as if she is going to fall out of bed. I am going to give meclizine. Will continue on with Cardizem drip per the Cardiology team we have also added Lopressor. Appreciate the input of the treating specialist. We will monitor the patient's progress and response to management. We will continue to provide general supportive care, GI and DVT prophylaxis. Further orders per attending MD and hospital course. NEURO: Minimize central acting medications as possible. Maintain fall precautions, adequate lighting during the day PULMONARY: Supplemental 02 as needed. Maintain aspiration precautions at all times CARDIOVASCULAR: Follow hemodynamics. Vital signs per facility protocol GI & NUTRITION: Continue with nutritional support. Continue stool softeners and laxatives as needed. KIDNEYS & ELECTROLYTES: Strict monitoring of intake, output and overall fluid balance. Avoid nephrotoxic medications to the extent possible. Medications to be dosed according to renal function. Monitor electrolytes and replace as needed ENDOCRINE: Maintain blood glucose between 100-180 at all times. Hypoglycemia protocol in place INFECTIOUS DISEASE: Trend temperature, WBC and procalcitonin level Follow cultures, deescalate antibiotics as soon as possible. Panculture if new onset fever ONCOLOGY/HEMATOLOGY/COAGULATION: Monitor for s/s of bleeding Monitor hemoglobin, coagulation studies as needed SKIN: Pressure ulcer prevention per facility protocol Specialty mattress ORTHO/REHAB: Continue PT/OT Prophylaxis: Continue GI and DVT prophylaxis Code Status: Full Resuscitation Disposition: TBD Other: Patient was seen and case discussed with jodie VILLATORO. Plan of care was discussed and agreed upon. NATALIYA LAMBERT NP Oct 03, 2024 10:50
--- NOTE | 2024-10-03 11:14 | NUR ---
HEPARIN DRIP STOPPED PER LEVAR JOHNSON
[2024-10-03] MEDS: dilTIAZem 60MG TAB PO SCH (11:58)
[2024-10-03] MEDS: mecliZINE HCL 25 MG TABLET PO ONE (11:58)
[2024-10-03] MEDS ORDERED: APIXaban 2.5 MG TABLET PO SCH (17:00)
--- NOTE | 2024-10-03 20:40 | PN ---
PROBLEM LIST: * Paroxysmal atrial fibrillation with RVR, currently rate controlled. * TIA. * CHADS2-VASc score of 4, currently on heparin drip. * Hypertension. 09/2023 echocardiogram, EF greater than 60%, stage II diastolic dysfunction, moderate with peak and mean gradients of 31 and 17, JORGE 1 cm2. INTERVAL HISTORY: The patient remains in atrial fibrillation generally in the 90s but brief episodes into the 100s. Cardizem drip has been discontinued. She is on metoprolol 50 mg b.i.d. The patient feels better than yesterday. Denies any chest pain, shortness of breath, palpitation or edema. No reports of bleeding. No reports of prior stroke. She is being worked up for TIA/CVA by the primary team. PHYSICAL EXAMINATION: GENERAL: Overweight elderly female resting in bed, visiting with family. VITAL SIGNS: Temperature 97.7, pulse 82, respirations 18, blood pressure 149/70. HEENT: Hearing intact. No facial asymmetry, nasal discharge, or icterus. CARDIOVASCULAR: Irregularly irregular, slightly tachycardic. No edema. RESPIRATORY: Grossly clear anteriorly. No wheezing or rhonchi. GASTROINTESTINAL: Benign, soft, nontender. EXTREMITIES: No amputations. Range of motion appears grossly normal. NEUROLOGIC AND PSYCHIATRY: Awake, alert, answering questions appropriately. No tremors or slurring. LABORATORY DATA: High sensory troponin yesterday peaked at 60. No other labs obtained today. Echocardiogram is pending. PLAN: The patient still has marginal rate control. Increase the metoprolol to 100 mg b.i.d. She remains on a heparin drip for now, but can be discharged with Eliquis. Continue aspirin, atorvastatin. Due to suspected CVA, we will maintain permissive hypertension with the caveat that we need rate control. TID: [id number] RECEIPT: [id number]
[2024-10-03] MEDS: APIXaban 2.5 MG TABLET PO SCH (21:07)
[2024-10-04] VITALS (11 sets, daily range): BP systolic 137–183; BP diastolic 65–93; PULSE 78–104; RESP 16–18; TEMP 97.4–98.3; O2SAT 94–95
[2024-10-04 04:13] LABS: BASOPHILS # (AUTO) 0.04 K/uL (0.00-0.20); BASOPHILS % (AUTO) 0.6 % (0.0-5.0); EOSINOPHILS # (AUTO) 0.12 K/uL (0.00-0.70); EOSINOPHILS % (AUTO) 1.8 % (0.0-8.0); HEMATOCRIT 40.9 % (36-48); IMMATURE GRANULOCYTE ABSOLUTE 0.02 K/uL (0-1); LYMPHOCYTES # (AUTO) 2.2 K/uL (1.0-4.8); MEAN CORPUSCULAR HEMOGLOBIN 30.8 pg (27.0-33.0); MEAN CORPUSCULAR HGB CONC 34.2 g/dL (32.0-36.0); MEAN CORPUSCULAR VOLUME 90.1 fL (79-99); MONOCYTES # (AUTO) 0.6 K/uL (0.1-1.0); MONOCYTES % (AUTO) 9.4 % (3.0-13.0); NEUTROPHILS # (AUTO) 3.6 K/uL (1.8-7.7); NEUTROPHILS % (AUTO) 53.9 % (40.0-77.0); PLATELET COUNT (AUTO) 198 K/uL (130-400); RED BLOOD CELL COUNT(AUTO) 4.54 MIL/uL (4.00-5.50); RED CELL DISTRIBUTION WIDTH 13.3 % (11.0-15.5); WHITE BLOOD COUNT (AUTO) 6.6 K/uL (4.8-10.8)
--- NOTE | 2024-10-04 08:24 | PN ---
PROBLEM LIST: * Paroxysmal atrial fibrillation with rapid ventricular response, currently with persistent atrial fibrillation, better rate control. * TIA. * High CHADS-VASC score. * History of hypertension. * Preserved LV systolic function with stage II diastolic dysfunction with mild aortic stenosis and moderate aortic insufficiency and a moderately dilated left atrium by echocardiography on this admission. * Frail, debilitated octogenarian. * Dyslipidemia. This frail elderly lady was hospitalized because of generalized body weakness and numbness and tingling in an arm. She has been evaluated extensively. From the cardiac standpoint, she currently denies any complaints and specifically denies any chest discomfort or shortness of breath. She has no palpitations and her heart rate is better controlled. PHYSICAL EXAMINATION: The patient's exam is remarkable for no evidence of jugular venous distention. The patient has adequate air entry to both lungs. Cardiac exam is remarkable for a 2/6 systolic ejection murmur. The abdomen is soft and extremities are without edema. She has no lateralizing neurologic signs. The patient's vital signs have been stable. She has been afebrile. Her heart rate has been in the 80s. Respiratory rate is 18. She is saturating at 96% to 98% on room air. Her blood pressure remains slightly elevated at 150/90 with permissive hypertension because of her recent neurologic manifestations. The patient is currently maintained on apixaban at an adjusted dose, diltiazem, metoprolol, baby aspirin, Rocephin, famotidine, atorvastatin and p.r.n. medications. LABORATORY DATA: The patient's laboratory studies this morning revealed a white count of 6.6 with an H and H of 14.0 and 40.9 respectively. Platelet count is 198,000. Chemistries revealed a sodium of 141, potassium was 4.0 with a chloride of 104, CO2 is 31, BUN is 20, creatinine is 1.0 with a GFR of 54 and random glucose of 120. The patient's TSH was high at 6.38 on the current regimen. It is important to note that the patient had significant ST segment depression when she had rapid ventricular response, which may well be due to an element of coronary artery disease; however, the rapid rate could also explain the elevated high sensitivity troponin and the ST segment changes. Given the patient's frail status and advanced age, and her personal desires and the family's desires, they wish to continue with conservative care for the time being. I have recommended continuing to adjust the patient's medications. The patient will require additional evaluation by her primary chairman and ceo once it is felt safe to dismiss her. TID: [id number] RECEIPT: [id number]
[2024-10-04] MEDS: mecliZINE HCL 12.5 MG TABLET PO PRN (09:02)
--- NOTE | 2024-10-04 11:21 | PN ---
[facility] PROGRESS NOTE Date Patient Seen: Oct 04, 2024 Time of Visit: 11:20 Supervising Physician: Dr. Finley Primary Care Physician: DR. CHRIS QUESADA Outpatient Specialists: [ ] Inpatient Consults: [ ] PROBLEM LIST: 1. AFIB WITH RVR 2. ESSENTIAL HYPERTENSION 3. TYPE 2 CA 4. 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 VERTIGO INTERVAL HISTORY: 10/02/2024: At the time of my evaluation, the patient is lying in bed. Family members are present at the bedside. The staff nurse reports no acute events. On the monitor, the patient remains afebrile, no tachycardia or tachypnea and m arginally hypertensive. No new laboratory data for review today. No new imaging for review. Currently, the patient is on a heparin drip and has been transitioned to metoprolol p.o.. No other complaint. 10/03/2024: At the time of my evaluation, the patient is lying in bed. She does appear somewhat confused. The patient is also making mentioned regarding the spinning sensation in the room and visual changes. The daughter is present at the bedside. Staff nurse made mentioned that the patient did receive a dose of Valium and Ativan overnight due to confusion and agitation currently, the patient is on room air and vital signs are unremarkable. Overnight, the Cardizem drip was resume due to AFib. Laboratory data was unremarkable. Microbiology data showed mixed bunny contamination, no further workup was carried forth. No new imaging for review today. No other complaint. 10/04/2024: At the time of my evaluation, the patient is lying in bed. She reports feeling much better today after the initiation of meclizine. She remains on room air. On the monitor, there was no tachycardia, tracing will showing AFib, no tachypnea and is hypertensive. Laboratory data today was unremarkable. No new imaging for review today. No new microbiology for review. No other complaint. REVIEW OF SYSTEMS: 12 point ROS reviewed with patient. Pertinent positives mentioned above. Otherwise negative. PHYSICAL EXAM: GENERAL: Alert, weak, awake oriented x 3 HEENT: EOMI, Sclera non icteric, moist mucosa NECK: Supple, no JVD, trachea midline LUNGS: Clear breath sounds bilaterally. No wheezes HEART: AFib with RVR ABD: Abdomen soft, nontender. Bowel sounds present EXT: No clubbing cyanosis or edema NEURO: Alert and oriented to person, follows commands Vital Signs (last 8hr) Date Time Temp Pulse Resp B/P (MAP) Pulse Ox O2 Delivery O2 Flow Rate FiO2 10/04/24 07:00 98.2 83 18 151/71 95 Room Air 10/04/24 04:00 98.2 87 18 158/93 96 Room Air LABS: Hematology Labs: Test 10/04/24 03:39 Range/Units White Blood Count 6.6 4.8-10.8 K/uL Red Blood Count 4.54 4.00-5.50 MIL/uL Hemoglobin 14.0 12.0-16.0 g/dL Hematocrit 40.9 36-48 % Mean Corpuscular Volume 90.1 79-99 fL Mean Corpuscular Hemoglobin 30.8 27.0-33.0 pg Mean Corpuscular Hemoglobin Concent 34.2 32.0-36.0 g/dL Red Cell Distribution Width 13.3 11.0-15.5 % Platelet Count 198 130-400 K/uL Mean Platelet Volume 10.4 7.5-10.5 fL Immature Granulocyte % (Auto) 0.3 0-1 % Neutrophils (%) (Auto) 53.9 40.0-77.0 % Lymphocytes (%) (Auto) 34.0 21.0-51.0 % Monocytes (%) (Auto) 9.4 3.0-13.0 % Eosinophils (%) (Auto) 1.8 0.0-8.0 % Basophils (%) (Auto) 0.6 0.0-5.0 % Neutrophils # (Auto) 3.6 1.8-7.7 K/uL Lymphocytes # (Auto) 2.2 1.0-4.8 K/uL Monocytes # (Auto) 0.6 0.1-1.0 K/uL Eosinophils # (Auto) 0.12 0.00-0.70 K/uL Basophils # (Auto) 0.04 0.00-0.20 K/uL Absolute Immature Granulocyte (auto 0.02 0-1 K/uL Nucleated Red Blood Cells 0.0 0.0-0.19 % Chemistry Labs: Test 10/04/24 03:39 Range/Units Sodium Level 141 136-145 mmol/L Potassium Level 4.0 3.5-5.1 mmol/L Chloride Level 104 101-111 mmol/L Carbon Dioxide Level 31 21-32 mmol/L Blood Urea Nitrogen 20 H 7-18 mg/dL Creatinine 1.0 0.5-1.0 mg/dL Glomerular Filtration Rate Calc 54 >90 mL/min Random Glucose 120 H 70-105 mg/dL Total Calcium 9.3 8.5-10.1 mg/dL Coagulation Labs: Test 10/04/24 03:39 10/02/24 22:09 Range/Units Activated Partial Thromboplast Time 27.3 26.3-35.5 SEC Prothrombin Time 11.5 9.6-11.6 SEC Prothromb Time International Ratio 1.09 0.85-1.15 DIAGNOSTICS / RADIOLOGY RESULTS: [ ] PLAN 10/02/2024: For now, going to continue current management for the patient. We will continue beta-luis therapy and follow the heart rate trend. I am going to follow the 2D echo that was ordered and is pending. We will repeat surveillance labs in the morning. The patient will remain on empiric antibiotic therapy with Rocephin for suspected urinary tract infection. I discussed the findings and plan for further management with the patient and family members. We will monitor the patient's progress and response to management. We will continue to provide general supportive care, GI and DVT prophylaxis. Further orders per attending MD and hospital course. 10/03/2024: I am going to request a orthostatic blood pressure monitoring as the patient is complaining of the room spinning sensation while lying down, also is feeling as if she is going to fall out of bed. I am going to give meclizine. Will continue on with Cardizem drip per the Cardiology team we have also added Lopressor. Appreciate the input of the treating specialist. We will monitor the patient's progress and response to management. We will continue to provide general supportive care, GI and DVT prophylaxis. Further orders per attending MD and hospital course. 10/04/2024: For now, going to continue current management for the patient per the Cardiology team, they have recommended continuing to adjust her medication and we will require further evaluation in the outpatient setting by her primary oil and gas principal's once it is felt safe to discharge her. Considering the microbiology data did not show any urinary tract infection, there was no febrile events are WBC count elevation, I am going to discontinue the IV Rocephin ordered. We will follow the oil and gas principal's recommendation once agreed on discharging the patient, she will be sent home. PT has been ordered to evaluate and treat. We will monitor the patient's progress and response to management. We will continue to provide general supportive care, GI and DVT prophylaxis. Further orders per attending MD and hospital course. NEURO: Minimize central acting medications as possible. Maintain fall precautions, adequate lighting during the day PULMONARY: Supplemental 02 as needed. Maintain aspiration precautions at all times CARDIOVASCULAR: Follow hemodynamics. Vital signs per facility protocol GI & NUTRITION: Continue with nutritional support. Continue stool softeners and laxatives as needed. KIDNEYS & ELECTROLYTES: Strict monitoring of intake, output and overall fluid balance. Avoid nephrotoxic medications to the extent possible. Medications to be dosed according to renal function. Monitor electrolytes and replace as needed ENDOCRINE: Maintain blood glucose between 100-180 at all times. Hypoglycemia protocol in place INFECTIOUS DISEASE: Trend temperature, WBC and procalcitonin level Follow cultures, deescalate antibiotics as soon as possible. Panculture if new onset fever ONCOLOGY/HEMATOLOGY/COAGULATION: Monitor for s/s of bleeding Monitor hemoglobin, coagulation studies as needed SKIN: Pressure ulcer prevention per facility protocol Specialty mattress ORTHO/REHAB: Continue PT/OT Prophylaxis: Continue GI and DVT prophylaxis Code Status: Full Resuscitation Disposition: TBD Other: Patient was seen and case discussed with jodie VILLATORO. Plan of care was discussed and agreed upon. NATALIYA LAMBERT NP Oct 04, 2024 11:21
--- NOTE | 2024-10-04 12:30 | NUR ---
PT follow up note: Patient was extensively educated on the importance of use of AD. She has SPC and Rollator at home. Patient initially verbalized she wanted to stay as independent as possible however also educated patient if she falls and breaks a bone, she will may not be able to return home. Daughter stated other siblings will be spending more time with patient as she lives alone. PT team to follow. Addendum: 10/04/24 at 1544 by PEPITO KONG PT Amended: Links added.
--- NOTE | 2024-10-04 17:11 | NUR ---
BLOOD PRESSURE BP 183/90 HR AFIB 83. FAUSTO AND DR. PADILLA NOTIFIED. FAUSTO ORDER: LABETALOL [address] PADILLA ORDER: HYDRALAZINE 10 MG Q4/PRN FOR BP>160 SBP, IF LABETALOL DOESN'T WORK Addendum: 10/04/24 at 2010 by ESDRAS ROOT RN RN 1926 HYDRALAZINE CHANGED TO LABETALOL DUE TO ALLERGY
[2024-10-04] MEDS: LAbetaLOL 20MG SYG IV SCH (17:22)
[2024-10-04] MEDS ORDERED: hydrALAZine 20MG/ML VIAL IV PRN (17:30)
[2024-10-04] MEDS ORDERED: LAbetaLOL 20MG SYG IV PRN (20:00)
[2024-10-05 03:48] LABS: BASOPHILS # (AUTO) 0.03 K/uL (0.00-0.20); BASOPHILS % (AUTO) 0.4 % (0.0-5.0); EOSINOPHILS # (AUTO) 0.13 K/uL (0.00-0.70); EOSINOPHILS % (AUTO) 1.9 % (0.0-8.0); HEMATOCRIT 41.6 % (36-48); IMMATURE GRANULOCYTE ABSOLUTE 0.02 K/uL (0-1); LYMPHOCYTES # (AUTO) 2.2 K/uL (1.0-4.8); LYMPHOCYTES % (AUTO) 31.9 % (21.0-51.0); MEAN CORPUSCULAR HEMOGLOBIN 30.4 pg (27.0-33.0); MEAN CORPUSCULAR HGB CONC 33.4 g/dL (32.0-36.0); MONOCYTES # (AUTO) 0.6 K/uL (0.1-1.0); MONOCYTES % (AUTO) 8.9 % (3.0-13.0); NEUTROPHILS # (AUTO) 3.8 K/uL (1.8-7.7); NEUTROPHILS % (AUTO) 56.6 % (40.0-77.0); PLATELET COUNT (AUTO) 189 K/uL (130-400); RED BLOOD CELL COUNT(AUTO) 4.57 MIL/uL (4.00-5.50); RED CELL DISTRIBUTION WIDTH 13.2 % (11.0-15.5); WHITE BLOOD COUNT (AUTO) 6.7 K/uL (4.8-10.8)
[2024-10-05 03:57] LABS: CREATININE 1.1 mg/dL (0.5-1.0); POTASSIUM 3.9 mmol/L (3.5-5.1)
[2024-10-05 04:53] VITALS: BP 161/81; PULSE 77; RESP 16; TEMP 98.4
[2024-10-05 08:00] VITALS: BP 135/75; PULSE 74; RESP 18; TEMP 97.9; O2SAT 98
--- NOTE | 2024-10-05 08:18 | PN ---
PROBLEM LIST: * Paroxysmal atrial fibrillation with rapid ventricular response, currently with persistent atrial fibrillation and adequate rate control. * History of a TIA on presentation. * High CHADS-VASC score. * History of hypertension with poorly controlled blood pressure measurements on this admission. * Preserved LV systolic function with stage 2 diastolic dysfunction with mild aortic stenosis and moderate aortic insufficiency with moderately dilated left atrium by echocardiography at this admission. * Frail [age]ogenarian, ambulating with a walker. * Dyslipidemia. This patient has been hospitalized predominantly because of her weakness and symptoms suggestive of a TIA. She has been managed with appropriate medical regimen. The patient has felt generally well. She now states that she is not having any symptoms. On assessing her this morning, she is comfortable and in no apparent distress. She is lying flat with no symptoms of shortness of breath. She denies any chest discomfort or palpitations. She has no neurologic symptoms at this point. The patient's vital signs are stable. She is afebrile. Her blood pressure, however, is somewhat elevated in the 150-160 systolic range. She is saturating at 96% on room air. The exam is remarkable for a systolic ejection murmur. The second heart sound is still preserved. The patient has no stigmata of volume overload. This patient is currently maintained on apixaban at 2.5 every 12 hours, diltiazem at 30 mg p.o. q. 6 hours, metoprolol at 100 mg p.o. b.i.d., baby aspirin, famotidine, atorvastatin and additional p.r.n. medications. She had been briefly treated with amiodarone that has been discontinued. Laboratory studies this morning revealed a white count of 6.7 with an H and H of 13.9 and 41.6 respectively. The platelet count is 189,000. The patient's chemistries revealed a sodium of 138, a potassium of 3.9, a chloride of 104, CO2 is 27, BUN is 24 with a creatinine of 1.1 with a GFR of 48. This has dropped from a GFR of 70 on admission. The patient's TSH is high at 6.38. Yesterday, I had a detailed discussion with the patient in regards to the options for medical management and additional evaluation of possible coronary artery disease. After a detailed discussion, the patient requested only conservative medical management. Today, I have once again discussed the options with her and with her family in attendance. She has requested continued conservative medical management and is not interested in pursuing invasive studies at this point. She is also eager to go home. The patient states that she has an allergy to hydralazine, the manifestations of which is unclear. I have recommended the initiation of losartan at 50 every 12 hours and have the patient follow up with the [facility] team as an outpatient once she has been felt to be stable for dismissal. TID: [id number] RECEIPT: [id number]
[2024-10-05] MEDS: LoSARTan 50 MG TABLET PO SCH (09:36)
[2024-10-05 12:00] VITALS: BP 132/85; PULSE 85; RESP 20; TEMP 98.6
--- NOTE | 2024-10-05 15:29 | DS ---
[facility] DISCHARGE SUMMARY Date Patient Seen: Oct 05, 2024 Time of Visit: 15:25 Supervising Physician: Dr. Garcia Primary Care Physician: DR. CHRIS QUESADA Outpatient Specialists: [ ] Inpatient Consults: [ ] PROBLEM LIST: 1. AFIB WITH RVR 2. ESSENTIAL HYPERTENSION 3. TYPE 2 DE 4. 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 VERTIGO HOSPITAL COURSE: This is a 88-year-old female with past medical history significant for atrial fibrillation on Cardizem p.o., hypertension, and a surgical history of cholecystectomy, appendectomy, left eye surgery, presented to emergency department complaining of generalized body weakness, palpitation, and left arm numbness that started the day of admission. Patient decided to come to emergency department for further evaluation and treatment. EKG performed in the emergency department shows AFib with RVR. Highest troponin level of 60. The patient was subsequently admitted for further inpatient evaluation and management of her c ondition. On this admission, the patient had a 2D echo which showed preserved LV systolic function with stage II diastolic dysfunction, mild aortic stenosis and moderate aortic insufficiency with moderately dilated left atrium. 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 Cardiology adjusted medication management for rate control and has since cleared the patient for discharge home. Patient is anxious for discharge home today. With regards to her isolated dizziness episode, that later was results with the use of meclizine. Because of the suspicion of a TIA/CVA. CT imaging of the brain was carried out and there was no acute intracranial findings. Patient was advised that she can continue with meclizine 12.5 mg p.o. q.h.s. and can follow up with her PCP in the community for possible ENT/neurology evaluation. With that said, I am going to review and reconcile medication list with the patient and plan for discharge home today. HPI (per admitting provider) The patient was treated for the following problems: ACTIVE PROBLEM LIST FOR THE HOSPITALIZATION: Afib RVR CHRONIC PROBLEMS: continue previous management per PCP unless otherwise indicated DIRECTOR BUSINESS INTEGRATION FINDINGS/RECOMMENDATIONS: Afib RVR now controlled rate PROCEDURES: as mentioned above DISCHARGE MEDICATIONS: See med list Pt hemodynamically stable and afebrile at time of discharge. PCP notified of patients admission, hospital course and discharge. PHYSICAL EXAM: GENERAL: Alert, weak, awake oriented x 3 HEENT: EOMI, Sclera non icteric, moist mucosa NECK: Supple, no JVD, trachea midline LUNGS: Clear breath sounds bilaterally. No wheezes HEART: AFib with RVR ABD: Abdomen soft, nontender. Bowel sounds present EXT: No clubbing cyanosis or edema NEURO: Alert and oriented to person, follows commands FOLLOW-UP: Follow-up with PCP in 2-3 days RECOMMENDATIONS: See Discharge Instructions This case was seen and discussed with my supervising physician. More than 30 minutes spent on discharge process, including evaluation of the patient, discussion with nursing staff, medication reconciliation and follow-up appointments NATALIYA LAMBERT NP Oct 05, 2024 15:29
[2024-10-05] MEDS ORDERED: METO50 PO (15:40)
[2024-10-05] MEDS ORDERED: FAMO20TA8 PO (15:40)
[2024-10-05] MEDS ORDERED: DILT60TA3 PO (15:40)
[2024-10-05] MEDS ORDERED: AEC81 PO (15:40)
[2024-10-05] MEDS ORDERED: APIX2.5T PO (15:40)
[2024-10-05] MEDS ORDERED: MECL-226 PO (15:40)
[2024-10-05] MEDS ORDERED: LOSA-418 PO (15:40)
[2024-10-05] MEDS ORDERED: ATOR40TA69 PO (15:40)
[2024-10-05 16:00] VITALS: BP 129/76; PULSE 86; RESP 20; TEMP 97.8
--- NOTE | 2024-10-05 18:08 | NUR ---
EDUCATION GIVEN TO PATIENT AND DAUGHTER AT BEDSIDE, BOTH VERBALIZED UNDERSTANDING. EDUCATED PATIENT TO MOBILE PET GROOMER ALL MEDICATIONS AT PHARMACY. TO FOLLOW UP WITH PCP IN 3-5 DAYS AND [facility] APPOINTMENT IS ALREADY SCHEDULED. REMOVED TELE MONITOR, AND BOTH IV SITES. APPLIED DRESSING AND PRESSURE UNTIL BLEEDING STOPPED. TAKEN TO PRIVATE VEHICLE VIA WHEELCHAIR.
== END 2024-10-05 18:15 | disposition home or self-care (01) | DRG 281 ==
LOC: EDH 16:25 → EDHIP 18:42 → 2AH 10-02 02:02
PROVIDERS: ADMIT Internal Medicine Critical Care Medicine; ATTEND Internal Medicine Critical Care Medicine
DX: I48.19 Other persistent atrial fibrillation (principal); G45.9 Transient cerebral ischemic attack, unspecified; I21.A1 Myocardial infarction type 2; E78.5 Hyperlipidemia, unspecified; I10 Essential (primary) hypertension; E11.9 Type 2 diabetes mellitus without complications; I25.10 Atherosclerotic heart disease of native coronary artery without angina pectoris; Z79.899 Other long term (current) drug therapy; Z90.49 Acquired absence of other specified parts of digestive tract
CPT/HCPCS: 36415; 70450; 70496; 70498; 71045; 80048; 80305; 81001; 82140; 83735; 84100; 84443; 84484; 85025; 85610; 85730; 87086; 93005; 93306; 96365; 99285; G0378; J0282; J0360; J0696; J1644; J3360; J3490; J7060; Q9967; J0283